=== PATIENT | female | born 1950 | race Caucasian/White ===

== ENCOUNTER 2019-06-11 09:45 | Outpatient (CLI) | payer SELFPAY ==
[2019-06-11 10:00] VITALS: BP 127/77; PULSE 68; RESP 16; TEMP 36.6; O2SAT 97
[2019-06-11 10:18] VITALS: BP 136/72; PULSE 72; RESP 16; TEMP 36.6; O2SAT 97
--- NOTE | 2019-06-11 11:34 | PC.NURSE ---
Prolia supplied from [facility]. 1015 Prolia administered SQ to RUQ of abdomen. Tolerated well. No charge for Prolia
== END 2019-06-11 09:46 | disposition home or self-care (01) ==
LOC: RHEOACUTE 09:50
PROVIDERS: Family Provider Physician Assistant; PCP Physician Assistant; Visit Provider Internal Medicine Rheumatology
DX: Z76.89 Persons encountering health services in other specified circumstances (principal)
CPT/HCPCS: 96372; J0897

== ENCOUNTER 2019-11-20 14:20 | Outpatient (CLI) | payer MEDICARE, OTHER, SELFPAY ==
--- NOTE | 2019-11-20 14:15 | USCV_ITS ---
Juliana Victoria Age: 69 Gender: F : 1950 Exam Date: 11/20/2019 14:36 Ordering Phys: Shantell Stevenson MD ([email or web address]) Technologist: Solomon Paredes Exam Location: [facility] [place] Indication: AORTIC VALVE STENOSIS BP: 125 / 70 HR: 51 Rhythm: Sinus Technical Quality: Adequate MEASUREMENTS (Male / Female) Normal Values 2D ECHO LV Diastolic Diameter PLAX 5.0 cm 4.2 - 5.9 / 3.9 - 5.3 cm LV Systolic Diameter PLAX 3.5 cm IVS Diastolic Thickness 0.9 cm 0.6 - 1.0 / 0.6 - 0.9 cm IVS Systolic Thickness 1.3 cm LVPW Diastolic Thickness 1.0 cm 0.6 - 1.0 / 0.6 - 0.9 cm LVPW Systolic Thickness 1.3 cm LVOT Diameter 2.0 cm LV Ejection Fraction 2C AL 60.2 % LA Diameter 4.7 cm LA Width 5.1 cm LA Height 6.4 cm RA Width 2.9 cm RA Height 4.9 cm Aorta at Sinotubular Diameter 1.3 cm M-MODE LV Diastolic Diameter MM 5.2 cm 4.2 - 5.9 / 3.9 - 5.3 cm LV Systolic Diameter MM 3.5 cm LV Ejection Fraction MM Teich 62.3 % IVS Diastolic Thickness MM 0.8 cm 0.6 - 1.0 / 0.6 - 0.9 cm IVS Systolic Thickness MM 1.2 cm LVPW Diastolic Thickness MM 1.2 cm 0.6 - 1.0 / 0.6 - 0.9 cm LVPW Systolic Thickness MM 1.6 cm RV Diastolic Diameter MM 1.3 cm Aortic Annulus Diameter 3.1 cm LA Ao Ratio MM 1.5 MV E Point Septal Separation 1.4 cm DOPPLER AV Peak Velocity 249.0 cm/s LVOT Peak Velocity 95.0 cm/s AV Area Cont Eq vti 1.4 cm squared AV Area Cont Eq pk 1.2 cm squared MV Area PHT 5.1 cm squared Mitral E to A Ratio 0.9 MV E' Velocity 10.0 cm/s Mitral E to MV E' Ratio 10.2 Mitral E to LV E' Lateral Ratio 11.2 Mitral E to LV E' Septal Ratio 9.6 TR Peak Velocity 420.0 cm/s TR Peak Gradient 70.4 mmHg TV Peak E Velocity 109.0 cm/s Right Atrial Pressure 3.0 mmHg Pulmonary Artery Systolic Pressu 73.6 mmHg PV Peak Velocity 94.0 cm/s FINDINGS Left Ventricle Moderately increased left ventricular cavity size. Moderatly decreased left ventricular systolic function. Global left ventricular hypokinesis. Left ventricular ejection fraction is estimated at 40 %. Global left ventricular hypokinesis. Grade I/IV diastolic dysfunction (abnormal relaxation filling pattern), normal to mildly elevated filling pressures. Right Ventricle Normal right ventricular size. Moderate pulmonary hypertension, RVSP 73.6 mmHg. Right Atrium The right atrium is normal in size. Left Atrium Severely increased left atrial size. Mitral Valve Moderately thickened mitral valve. No mitral valve stenosis. Moderate` mitral valve regurgitation. Aortic Valve Severe aortic valve calcification. Moderate aortic valve stenosis, mean gradient 10.3 mmHg, RACHELE 1.4 cm squared. [id number] aortic valve regurgitation. Tricuspid Valve Moderate tricuspid valve regurgitation. Pulmonic Valve Structurally normal pulmonic valve without significant stenosis. There is no pulmonic regurgitation. Pericardium Normal pericardium without effusion. Aorta Normal ascending aorta dimension. CONCLUSIONS 1-Moderately increased left ventricular cavity size. Moderatly decreased left ventricular systolic function. Global left ventricular hypokinesis. Left ventricular ejection fraction is estimated at 40 %. Global left ventricular hypokinesis. Grade I/IV diastolic dysfunction (abnormal relaxation filling pattern), normal to mildly elevated filling pressures. 2-Normal right ventricular size. Moderate pulmonary hypertension, RVSP 73.6 mmHg. 3-Severe aortic valve calcification. Moderate aortic valve stenosis, mean gradient 10.3 mmHg, RACHELE 1.4 cm squared. [id number]-thvcqizx aortic valve regurgitation. 4-Moderate tricuspid valve regurgitation. 5-There is no pericardial effusion. 6-When compared to prior echocardiogram dated 10/15/2018 there appeared to be reduction in left ventricle function from 50% to 40% which is moderately reduced now Shantell Stevenson MD (Electronically Signed) Final Date: 22 November 2019 17:05 S
== END 2019-11-20 14:21 | disposition home or self-care (01) ==
LOC: US 14:20
PROVIDERS: PCP Physician Assistant; Visit Provider Internal Medicine Cardiovascular Disease
DX: I27.20 Pulmonary hypertension, unspecified (principal); I08.2 Rheumatic disorders of both aortic and tricuspid valves
CPT/HCPCS: 93306

== ENCOUNTER 2020-09-30 08:41 | Outpatient (CLI) | payer MEDICARE, OTHER, SELFPAY ==
--- NOTE | 2020-09-30 08:46 | MM_ITS ---
WS: [id number] BILATERAL SCREENING DIGITAL MAMMOGRAM WITH CAD HISTORY: SCREENING COMPARISON: 10/19/2018 at 03/16/2015 Bilateral CC and MLO views submitted. Computer aided detection analyzed. Breast composition: There are scattered areas of fibroglandular density. No suspicious masses, microc alcifications or architectural distortion. Breast arterial calcifications in the RIGHT breast. MM/[place] [id number] IMPRESSION: BI-RADS: 2-Benign FOLLOW UP: 1 Year Follow-up
== END 2020-09-30 08:42 | disposition home or self-care (01) ==
LOC: RADSHAW 08:44
PROVIDERS: PCP Physician Assistant; Visit Provider Physician Assistant
DX: Z12.31 Encounter for screening mammogram for malignant neoplasm of breast (principal)
CPT/HCPCS: 77067

== ENCOUNTER → 2021-03-26 09:03 | Outpatient (BNVA) | payer MEDICARE, OTHER, SELFPAY | PROVIDERS: PCP Physician Assistant; Visit Provider Internal Medicine | DX: E55.9 Vitamin D deficiency, unspecified (principal); M81.0 Age-related osteoporosis without current pathological fracture; Z87.891 Personal history of nicotine dependence | CPT/HCPCS: 36415; 82542; 82652; 99214 ==

== ENCOUNTER 2021-03-26 09:54 | Outpatient (CLI) | payer MEDICARE, OTHER, SELFPAY ==
[2021-03-29 11:17] LABS: Vit D 1,25 (Oh)2, Total 40 pg/mL (18-72); Vit D2 1,25 (Oh)2 <8 pg/mL; Vit D3 1,25 (Oh)2 40 pg/mL
== END 2021-03-26 09:55 | disposition home or self-care (01) ==
LOC: LAB 09:57
PROVIDERS: PCP Physician Assistant; Visit Provider Internal Medicine
DX: E83.52 Hypercalcemia (principal)
CPT/HCPCS: 36415; 82542; 82652

== ENCOUNTER 2021-05-25 10:13 | Outpatient (CLI) | payer MEDICARE, OTHER, SELFPAY ==
[2021-05-25 11:30] LABS: Calcium 10.7 mg/dL (8.5-10.5); Phosphorus 3.4 mg/dL (2.5-4.5)
[2021-05-25 11:43] LABS: 25 Hydroxy Vitamin D 60 ng/mL (30-100)
== END 2021-05-25 10:14 | disposition home or self-care (01) ==
LOC: LAB 10:22
PROVIDERS: PCP Physician Assistant; Visit Provider Internal Medicine
DX: E83.52 Hypercalcemia (principal); M81.0 Age-related osteoporosis without current pathological fracture
CPT/HCPCS: 36415; 82306; 82310; 83970; 84100

== ENCOUNTER → 2021-05-28 09:11 | Outpatient (BNVA) | payer MEDICARE, OTHER, SELFPAY | PROVIDERS: PCP Physician Assistant; Visit Provider Internal Medicine | DX: E21.0 Primary hyperparathyroidism (principal); M81.0 Age-related osteoporosis without current pathological fracture; Z87.891 Personal history of nicotine dependence | CPT/HCPCS: 99214 ==

== ENCOUNTER 2021-08-09 08:09 | Outpatient (CLI) | payer MEDICARE, OTHER, SELFPAY ==
--- NOTE | 2021-08-09 08:14 | NM_ITS ---
WS: [id number] NUCLEAR MEDICINE PARATHYROID SCINTIGRAPHY INDICATION: Hypercalcemia TECHNIQUE: Parathyroid scintigraphy with 19.6 mCi technetium 99m sestamibi. Early and late imaging wa s obtained with suprasternal and chin markers. Initial imaging with delayed imaging at 2 hours. FINDINGS: Normal salivary uptake on the initial imaging. Normal homogeneous thyroid gland uptake. On the delayed imaging, normal thyroid gland washout. No residual thyroid gland activity. No residual ac tivity on the delayed imaging to indicate parathyroid adenoma. NM/NM parathyroid [id number] IMPRESSION: No evidence of parathyroid adenoma
== END 2021-08-09 08:10 | disposition home or self-care (01) ==
LOC: RAD 08:09
PROVIDERS: PCP Physician Assistant; Visit Provider Internal Medicine
DX: E21.0 Primary hyperparathyroidism (principal)
CPT/HCPCS: 78070; A9500

== ENCOUNTER → 2021-08-17 10:43 | Outpatient (BNVA) | payer MEDICARE, OTHER, SELFPAY | PROVIDERS: PCP Physician Assistant; Visit Provider Internal Medicine Cardiovascular Disease | DX: I35.0 Nonrheumatic aortic (valve) stenosis (principal); E83.52 Hypercalcemia; I25.5 Ischemic cardiomyopathy; I25.10 Atherosclerotic heart disease of native coronary artery without angina pectoris; I49.9 Cardiac arrhythmia, unspecified; I11.0 Hypertensive heart disease with heart failure; I50.33 Acute on chronic diastolic (congestive) heart failure; I44.0 Atrioventricular block, first degree; Z87.891 Personal history of nicotine dependence | CPT/HCPCS: 80048; 83880; 93005; 99214; 99215 ==

== ENCOUNTER → 2021-08-18 08:33 | Outpatient (BNVA) | payer MEDICARE, OTHER, SELFPAY | PROVIDERS: PCP Physician Assistant; Visit Provider Internal Medicine | DX: E21.0 Primary hyperparathyroidism (principal); M81.0 Age-related osteoporosis without current pathological fracture; Z87.891 Personal history of nicotine dependence | CPT/HCPCS: 99214 ==

== ENCOUNTER 2021-08-30 12:06 | Observation (INO) | payer MEDICARE, OTHER, SELFPAY ==
[2021-08-30 12:29] VITALS: BP 122/90; PULSE 74; RESP 18; TEMP 36.6; O2SAT 99; BMI 26.4
[2021-08-30 14:20] LABS: Add Urine Microscopic? NO; Charge for UA Resulting for Rev
[2021-08-30 14:24] LABS: Urine Appearance Clear (CLEAR); Urine Color Straw (Yellow); pH Urine 7 (5-7)
[2021-08-30 14:25] LABS: Bilirubin Urine Neg (Negative); Blood Urine Neg (Negative); Glucose Urine UA Norm (Normal); Ketones Urine Negative (Negative); Leukocyte Esterase Urine Negative (Negative); Nitrate Urine Negative (Negative); Protein Urine Neg (Negative); Urobilinogen Urine Norm (Negative)
[2021-08-30 16:02] VITALS: BP 130/53; PULSE 70; RESP 18; TEMP 36.6; O2SAT 99
--- NOTE | 2021-08-30 16:07 | ECG_ITS ---
[facility] Test Date: 2021-08-30 Pat Name: Juliana Victoria Department: Room: Gender: Female Cultural Historian: : 1950 Requested By: Jen Alford Order Number: [id number] Carlos MD: Jaclyn Santiago M.D. Measurements Intervals [place] Rate: 78 P: 77 MS: 214 QRS: -15 QRSD: 153 T: 84 QT: 385 QTc: 440 Interpretive Statements SINUS RHYTHM WITH FIRST DEGREE AV BLOCK WITH FREQUENT VENTRICULAR PREMATURE COMPLEXES POSSIBLE LEFT ATRIAL ENLARGEMENT [-0.1mV P-WAVE IN V1/V2] LEFT BUNDLE BRANCH BLOCK Compared to ECG 08/13/2017 01:38:10 Ventricular premature complex(es) now present First degree AV block now present Electronically Signed On 08-30-2021 17:32:41 CDT by Jaclyn Santiago M.D. [id number]
--- NOTE | 2021-08-30 16:07 | XRR_ITS ---
PROCEDURE INFORMATION: Exam: XR Chest Exam date and time: 08/30/2021 4:30 PM Age: 71 years old Clinical indication: Other: Light-headedness TECHNIQUE: Imaging protocol: XR of the chest. Views: 1 view. COMPARISON: CR Chest 1 [place] [id number] 08/13/2017 1:47 AM FINDINGS: Lungs: Unremarkable. No consolidation. Pleural spaces: Unremarkable. No pleural effusion. No pneumothorax. Heart/Mediastinum: Cardiomegaly. Bones/joints: Unremarkable. XR/XR chest 1V portable [id number] IMPRESSION: Cardiomegaly, negative for infiltrate.
[2021-08-30 16:13] LABS: Basophils # 0.1 10^3/uL (0.0-0.1); Basophils % 0.7 %; Eosinophils # 0.1 10^3/uL (0.0-0.8); Eosinophils % 1.9 %; Hemoglobin 13.7 g/dL (11.5-15.3); Lymphocytes # 1.9 10^3/uL (0.8-4.8); Mean Corpuscular HGB Conc 33.4 g/dL (30.0-36.0); Mean Corpuscular Volume 95.8 fl (81-99); Mean Platelet Volume 10.5 fL (7.4-10.4); Monocytes # 0.7 10^3/uL (0.2-0.9); Monocytes % 9.6 %; Neutrophils # 4.13 10^3/uL (1.8-7.7); Neutrophils % 60.5 %; Nucleated Red Blood Cells % 0 %; Platelet Count 263 10^3/cmm (130-400); Red Blood Count 4.28 10^6/uL (4.1-5.3); Red Cell Distribution Width 13.2 % (12.1-15.1); White Blood Count 6.8 10^3/uL (4.0-10.0)
--- NOTE | 2021-08-30 16:20 | W.ED.GENADLT ---
HPI - General Adult General: Chief complaint: General Medical Stated complaint: Low bl pressure; Says they have fluid on their anni Time Seen by Provider: 08/30/21 15:58 History of Present Illness: Patient is 71-year-old female with history of aortic regurgitation with CAD, CHF w/ EF of 40%, hypertension who presents the emergency room with concerns of palpitation and lightheadedness. Patient tells me that earlier today, she felt very lightheaded almost passed out this morning at 9am. Around that time, the patient measured her blood pressure was noted to be 105/70. Patient denies any syncope chest pain shortness of breath nausea/vomiting, diaphoresis abdominal pain at that time. Patient denies any exertional dyspnea/chest pain pleuritic chest pain. Patient denies any lower extremity swelling. Patient is currently followed by Dr. Cohen he came to the emergency room for concerns of lightheadedness. He does not have a pacemaker or AICD device. Onset:earlier today Duration:once lasting for a few minutes Location:home Severity:moderate Associated symptoms: Deny chest pain, dyspnea, nausea, rash, palpitations or vomiting Review of Systems Const: Denies: fever(s) or chills Eyes: Denies: change in vision ENMT: Denies: mouth pain Card: Denies: chest pain or palpitations Resp: Denies: dyspnea or non-productive cough GI: Denies: abdominal pain, nausea, vomiting or diarrhea : Denies: dysuria Musc: Denies: extremity pain Skin/Breast: Denies: rash or new lesions Neuro: Reports: other (+light-headedness); Denies: weakness in extremities Psych: Reports: other (Normal mood) Nicholas/Lymph: Denies: easy bruising PFSH ED PFSH: Medical History Aortic regurgitation Aortic stenosis CAD (coronary artery disease) Heart murmur HTN (hypertension) Osteoporosis Surgical History H/O section S/P appendectomy S/P coronary angioplasty S/P hip replacement S/P knee replacement S/P rotator cuff repair Family History Mother Cancer Arthritis Family history of thyroid problem Osteoporosis Heart disease Hypertension CAD (coronary artery disease) Dementia Father Arthritis Heart disease Hypertension CAD (coronary artery disease) Denies family history of Diabetes Clotting disorder Chronic kidney disease (CKD) Suicide Anesthesia complication Bleeding disorder Lung disease Stroke Social History Smoking and tobacco status: former smoker History of recent travel: No Physical Exam Const: COMMON NORMALS: alert HENMT: COMMON NORMALS: atraumatic HEAD & SCALP: atraumatic MOUTH: moist mucous membranes not abnormal Eye: COMMON NORMALS: EOMs intact bilaterally and conjunctivae normal CONJUNCTIVA: Yes conjunctivae normal Neck/C-Spine: COMMON NORMALS: full ROM and supple Resp: COMMON NORMALS: normal respiratory effort and clear to auscultation bilaterally AUSCULTATION: clear to auscultation bilaterally Cardio: COMMON NORMALS: regular rate RATE: regular rate GI: COMMON NORMALS: Soft to palpation and non-tender PALPATION: Yes Soft to palpation Extremity: COMMON NORMALS: full ROM Neuro: SENSORIUM/ORIENTATION: Yes alert MOTOR EXAM: No Abnormal motor strength present and Other motor observations present (no focal motor deficits) Psych: COMMON NORMALS: speech normal SPEECH: Yes normal speech MOOD & AFFECT: Yes euthymic mood Course Vital Signs: Vital signs: Vital Signs Temperature 97.9 F 08/30/21 16:02 Pulse Rate 70 08/30/21 16:02 Respiratory Rate 18 08/30/21 16:02 Blood Pressure 130/53 08/30/21 16:02 Pulse Oximetry 99 08/30/21 16:02 [facility] - General Adult Medical Decision Making 71-year-old female with history of CHF, CAD presenting to the emergency room with complaints of lightheadedness. On physical exam, patient is hemodynamically stable with no focal findings. Patient is noted to have regular PVCs. Lab work-up showed focal findings. Given history of CHF with EF 40% and the comorbidities, patient will be admitted to hospital for telemetry and observation for high risk syncope. Disposition: admission Lab Data : 08/30/21 15:38 08/30/21 15:38 Laboratory Results WBC 6.8 10^3/uL (4.0-10.0) 08/30/21 15:38 RBC 4.28 10^6/uL (4.1-5.3) 08/30/21 15:38 Hgb 13.7 g/dL (11.5-15.3) 08/30/21 15:38 Hct 41.0 % (37.0-47.0) 08/30/21 15:38 MCV 95.8 fl (81-99) 08/30/21 15:38 MCH 32.0 pg (28.0-34.0) 08/30/21 15:38 MCHC 33.4 g/dL (30.0-36.0) 08/30/21 15:38 RDW 13.2 % (12.1-15.1) 08/30/21 15:38 Plt Count 263 10^3/cmm (130-400) 08/30/21 15:38 MPV 10.5 fL (7.4-10.4) H 08/30/21 15:38 Neut % (Auto) 60.5 % 08/30/21 15:38 Lymph % (Auto) 27.0 % 08/30/21 15:38 [place] % (Auto) 9.6 % 08/30/21 15:38 Eos % (Auto) 1.9 % 08/30/21 15:38 Baso % (Auto) 0.7 % 08/30/21 15:38 Neut # (Auto) 4.13 10^3/uL (1.8-7.7) 08/30/21 15:38 Lymph # (Auto) 1.9 10^3/uL (0.8-4.8) 08/30/21 15:38 [place] # (Auto) 0.7 10^3/uL (0.2-0.9) 08/30/21 15:38 Eos # (Auto) 0.1 10^3/uL (0.0-0.8) 08/30/21 15:38 Baso # (Auto) 0.1 10^3/uL (0.0-0.1) 08/30/21 15:38 Nucleated RBC % (auto) 0 % 08/30/21 15: Nucleated RBCs # 0.0 /100WBC 08/30/21 15:38 Sodium 134 mmol/L (136-145) L 08/30/21 15:38 Potassium 3.6 mmol/L (3.5-5.1) 08/30/21 15:38 Chloride 96 mmol/L (98-107) L 08/30/21 15:38 Carbon Dioxide 23 mmol/L (22-29) 08/30/21 15:38 Anion Gap 18.6 (5-19) 08/30/21 15:38 BUN 13 mg/dL (8-23) 08/30/21 15:38 Creatinine 0.4 mg/dL (0.5-0.9) L 08/30/21 15:38 GFR Calculation Not Reportable 08/30/21 15:38 Glucose 100 mg/dL (65-115) 08/30/21 15:38 Calculated Osmolality 278 mOsm/kg (285-295) L 08/30/21 15:38 Calcium 10.2 mg/dL (8.5-10.5) 08/30/21 15:38 Magnesium 2.2 mg/dL (1.7-2.3) 08/30/21 15:38 Magnesium Cancelled 08/30/21 15:38 Total Bilirubin 0.6 mg/dL (0.15-1.2) 08/30/21 15:38 AST 23 U/L (0-32) 08/30/21 15:38 ALT 18 U/L (0-33) 08/30/21 15:38 Alkaline Phosphatase 95 IU/L (35-105) 08/30/21 15:38 Troponin T Baseline 6 ng/L (0-10) 08/30/21 15:38 Total Protein 8.7 g/dL (6.6-8.7) 08/30/21 15:38 Albumin 5.3 g/dL (3.5-5.2) H 08/30/21 15:38 Globulin 3.4 g/dL (1.3-4.6) 08/30/21 15:38 Lipase 18 U/L (13-60) 08/30/21 15:38 Urine Color Straw (Yellow) 08/30/21 13:59 Urine Appearance Clear (CLEAR) 08/30/21 13:59 Urine pH 7 (5-7) 08/30/21 13:59 Ur Specific [place] 1.010 (1.005-1.030) 08/30/21 13:59 Urine Protein Neg (Negative) 08/30/21 13:59 Urine Glucose (UA) Norm (Normal) 08/30/21 13:59 Urine Ketones Negative (Negative) 08/30/21 13:59 Urine Blood Neg (Negative) 08/30/21 13:59 Urine Nitrate Negative (Negative) 08/30/21 13:59 Urine Bilirubin Neg (Negative) 08/30/21 13:59 Urine Urobilinogen Norm mg/dL (Negative) 08/30/21 13:59 Ur Leukocyte Esterase Negative (Negative) 08/30/21 13:59 Imaging Data Other Imaging: Radiologist's impression: [address] [address] XRay Report Signed Patient: Juliana Victoria Unit #: [id number] : 1950 Age/Sex: 71 / F ADM Date: 08/30/21 Loc: ER Room/Bed: Attending Dr: Ordering Provider/Ordering MD: Jen Alford MD Date of Service: 08/30/21 Procedure(s): XR chest 1V portable [id number] Accession Number(s): [id number] Report Number: [id number] PROCEDURE INFORMATION: Exam: XR Chest Exam date and time: 08/30/2021 4:30 PM Age: 71 years old Clinical indication: Other: Light-headedness TECHNIQUE: Imaging protocol: XR of the chest. Views: 1 view. COMPARISON: CR Chest 1 [place] [id number] 08/13/2017 1:47 AM FINDINGS: Lungs: Unremarkable. No consolidation. Pleural spaces: Unremarkable. No pleural effusion. No pneumothorax. Heart/Mediastinum: Cardiomegaly. Bones/joints: Unremarkable. XR/XR chest 1V portable [id number] IMPRESSION: Cardiomegaly, negative for infiltrate. ? Dictated By: Owen Pickard MD Signed By: Owen Pickard MD Signed Date/Time: 08/30/21 1655 DD/ 1630 Discharge Plan Discharge Patient Disposition: Admitted As Inpatient Clinical Impression: Light headedness Condition: Stable Coding Level of Care Code ED Callisthenics Instructor for Chg Fwd Exam Comprehensive
[2021-08-30 16:36] LABS: Alanine Aminotransferase 18 U/L (0-33); Albumin Level 5.3 g/dL (3.5-5.2); Alkaline Phosphatase 95 IU/L (35-105); Anion Gap 18.6 (5-19); Aspartate Amino Transferase 23 U/L (0-32); Blood Urea Nitrogen 13 mg/dL (8-23); Calcium 10.2 mg/dL (8.5-10.5); Carbon Dioxide 23 mmol/L (22-29); Chloride 96 mmol/L (98-107); Globulin 3.4 g/dL (1.3-4.6); Glucose 100 mg/dL (65-115); Lipase 18 U/L (13-60); Magnesium 2.2 mg/dL (1.7-2.3); Osmolality Calculated 278 mOsm/kg (285-295); Potassium 3.6 mmol/L (3.5-5.1); Sodium 134 mmol/L (136-145); Total Bilirubin 0.6 mg/dL (0.15-1.2); Total Protein 8.7 g/dL (6.6-8.7)
[2021-08-30 16:38] LABS: Troponin(5th) Baseline 6 ng/L (0-10)
[2021-08-30] MEDS: sodium chloride 0.9% 1,000 ML 999 ML IV ×2 (16:44→17:45)
--- NOTE | 2021-08-30 17:29 | P.HP_ITS ---
Providers/Chief Complaint Primary Care Provider: Daniela Price Chief Complaint: Low blood sugar, Says they have fluid on their anni History of Present Illness Juliana Victoria is a 71 year old female with a past medical history of CAD s tatus post PCI to mid LAD, has mild disease of left circumflex and right coronary artery, ischemic cardiomyopathy EF 40%, history of aortic valve stenosis, history of pulmonary hypertension, osteoporosis, hyperlipidemia, hypertension who presents [facility] due to presyncopal symptoms. Cosmo acosta tells me that she just saw Dr. Noel Torres she was doing well. However since then she has been feeling a bit lightheaded and more short of breath than normal. She denies ever passing out. But feels that she is almost going to pass out. Does not particularly associate with any position. But whenever she exerts herself at times, she feels like she is going to pass out feels lightheaded. Denies any chest pain. No dysuria. No hematuria. No cough. No fevers. No focal neurologic deficits, no paresthesias, no focal weakness. No history of strokes. No history of seizures. No recent history of infections. Denies bloody or black stools. Denies hematuria Review of Systems Const: Denies: fever(s) or chills Eyes: Denies: change in vision or blurry vision Resp: Denies: productive cough, non-productive cough or wheezing GI: Denies: abdominal pain, nausea, vomiting, hematemesis, diarrhea, hematochezia or melena : Denies: flank pain, dysuria or urinary frequency Musc: Denies: neck pain or back pain Skin/Breast: Denies: rash Neuro: Denies: headache(s) or vertigo Endo: Denies: polyuria or polydipsia Medications/Allergies Home Medications Medication Instructions Recorded Confirmed Last Taken Type amlodipine 10 mg tablet 10 mg PO DAILY 06/20/19 08/30/21 08/30/21 History aspirin 81 mg tablet,delayed 81 mg PO DAILY 06/20/19 08/30/21 08/30/21 History release (Adult Low Dose Aspirin) cholecalciferol (vitamin D3) 25 1,000 unit PO DAILY 06/20/19 08/30/21 08/30/21 History mcg (1,000 unit) capsule nebivolol 5 mg tablet (Bystolic) 5 mg PO DAILY 06/20/19 08/30/21 08/30/21 History simvastatin 20 mg tablet 20 mg PO DAILY 06/20/19 08/30/21 08/30/21 History furosemide 20 mg tablet 20 mg PO DAILY 12/25/20 08/30/21 08/30/21 History denosumab 60 mg/mL subcutaneous 60 mg SUBCUT .EVERY 6 MONTHS ml 01/08/21 08/30/21 2 Months Ago History syringe (Prolia) ~06/30/21 multivitamin 1 tab PO DAILY 01/08/21 08/30/21 08/30/21 History potassium chloride 10 mEq 10 meq PO DAILY 01/08/21 08/30/21 08/30/21 History tablet,extended release vit B complex with C 300 1 tab PO DAILY 01/08/21 08/30/21 08/30/21 History mg-calcium carbonate 150 mg calcium tablet (B-Complex Plus Vitamin C (and calcium)) zinc acetate 50 mg (zinc) capsule 50 mg PO DAILY 03/26/21 08/30/21 08/30/21 History (Galzin) sacubitril 24 mg-valsartan 26 mg 1 tab PO BID #60 tab 08/17/21 08/30/21 08/30/21 Rx tablet (Entresto) celecoxib 200 mg capsule 200 mg PO BID PRN 08/30/21 08/30/21 Unknown History Allergies Allergy/AdvReac Type Severity Reaction Status Date / Time diphenhydramine AdvReac Intermediate Hypertensio Verified 08/30/21 16:47 [From Benadryl] n azithromycin [From Zithromax] AdvReac Mild Weird Verified 08/30/21 16:47 feeling PFSH Acute PFSH: Medical History Aortic regurgitation Aortic stenosis CAD (coronary artery disease) Heart murmur HTN (hypertension) Osteoporosis Surgical History H/O section S/P appendectomy S/P coronary angioplasty S/P hip replacement S/P knee replacement S/P rotator cuff repair Family History Mother Cancer Arthritis Family history of thyroid problem Osteoporosis Heart disease Hypertension CAD (coronary artery disease) Dementia Father Arthritis Heart disease Hypertension CAD (coronary artery disease) Denies family history of Diabetes Clotting disorder Chronic kidney disease (CKD) Suicide Anesthesia complication Bleeding disorder Lung disease Stroke Social History Smoking and tobacco status: former smoker History of recent travel: No Vitals/I&O/Wt Last Vital Signs Temp 97.9 F 08/30/21 16:02 Pulse 70 08/30/21 16:02 Resp 18 08/30/21 16:02 BP 130/53 08/30/21 16:02 Pulse Ox 99 08/30/21 16:02 Weight last 48 hrs Weight 53.524 kg Physical Exam Const: COMMON NORMALS: no acute distress and patient oriented x3 HENMT: COMMON NORMALS: normocephalic HEAD & SCALP: normocephalic Eye: COMMON NORMALS: Equal, round and reactive pupils present and EOMs intact bilaterally Neck/C-Spine: COMMON NORMALS: no JVD Resp: COMMON NORMALS: normal respiratory effort, No retractions, No use of accessory muscles and clear to auscultation bilaterally AUSCULTATION: clear to auscultation bilaterally Cardio: COMMON NORMALS: no JVD, regular rate, regular rhythm, S1 normal heart sound present and S2 normal heart sound present RATE: regular rate RHYTHM: regular rhythm HEART SOUNDS: S1 normal heart sound present, S2 normal heart sound present and Murmur heart sound present GI: COMMON NORMALS: Normal to inspection, nondistended, normoactive bowel sounds present, Soft to palpation, non-tender, No hepatosplenomegaly present, no masses and no bruits PALPATION: Yes Soft to palpation and Yes No hepatosplenomegaly present Extremity: COMMON NORMALS: capillary refill normal, no clubbing, cyanosis or edema, no calf tenderness and no pedal edema Neuro: COMMON NORMALS: patient oriented x3 Psych: COMMON NORMALS: mental status grossly normal Data : 08/30/21 15:38 08/30/21 15:38 A&P Assessment and plan (1) Pre-syncope: Status: Acute (2) CAD (coronary artery disease): Status: Acute Qualifiers: Coronary Disease-Associated Artery/Lesion type: [place] artery [place] vs. transplanted heart: [place] heart Associated angina: without angina Qualified Code(s): I25.10 - Atherosclerotic heart disease of [place] coronary artery without angina pectoris (3) Aortic stenosis: Status: Acute Qualifiers: Cardiac valve disease etiology: nonrheumatic Qualified Code(s): I35.0 - Nonrheumatic aortic (valve) stenosis (4) HTN (hypertension): Status: Acute Qualifiers: Hypertension type: essential hypertension Qualified Code(s): I10 - Essential (primary) hypertension (5) Osteoporosis: Status: Acute (6) Atherosclerosis of coronary artery of [place] heart without angina pectoris: Status: Acute Plan Presyncope -Serial EKGs, serial troponins, telemetry monitoring -Patient recently started Entresto, may be on , possibly this could be leading to patient's symptomatology, continue for now, will reach out to cardiology with work-up -Cardiac echo -Carotid artery ultrasound -CT of the head -Orthostatic vitals, TSH, mag -PT OT -Full code -Lovenox for DVT prophylaxis Aortic valve stenosis ischemic cardiomyopathy - Attestations Medical Necessity Statement*: Patient requires hospitalization, outpatient observation for presyncope Coding Level of Care Code Acute Crane Service Technician for Chg Fwd Diagnoses Pre-syncope R55 CAD (coronary artery disease) I25.10 Coronary Disease-Associated Artery/Lesion type: [place] artery [place] vs. transplanted heart: [place] heart Associated angina: without angina Aortic stenosis I35.0 Cardiac valve disease etiology: nonrheumatic HTN (hypertension) I10 Hypertension type: essential hypertension Osteoporosis M81.0 Atherosclerosis of coronary artery of [place] heart without angina pectoris I25.10
--- NOTE | 2021-08-30 18:07 | ECG_ITS ---
[facility] Test Date: 2021-08-30 Pat Name: Juliana Victoria Department: Room: 259 Gender: Female Manager Shell: : 1950 Requested By: Jen Alford Order Number: [id number] Carlos MD: Jaclyn Santiago M.D. Measurements Intervals [place] Rate: 70 P: 74 MD: 220 QRS: -42 QRSD: 144 T: 82 QT: 384 QTc: 417 Interpretive Statements SINUS RHYTHM WITH FIRST DEGREE AV BLOCK WITH FREQUENT VENTRICULAR PREMATURE COMPLEXES POSSIBLE LEFT ATRIAL ENLARGEMENT [-0.1mV P-WAVE IN V1/V2] LEFT AXIS DEVIATION [QRS AXIS < -30] LEFT BUNDLE BRANCH BLOCK Compared to ECG 08/30/2021 16:12:50 Ventricular premature complex(es) now present Left-axis deviation now present Electronically Signed On 08-30-2021 21:07:10 CDT by Jaclyn Santiago M.D. [id number]
[2021-08-30 18:09] VITALS: BP 139/61; PULSE 68; RESP 18; O2SAT 90
[2021-08-30 18:19] VITALS: BP 128/77; PULSE 70
--- NOTE | 2021-08-30 18:19 | CTR_ITS ---
PROCEDURE INFORMATION: Exam: CT Head Without Contrast Exam date and time: 08/30/2021 9:23 PM Age: 71 years old Clinical indication: Dizziness; Additional info: Presyncope TECHNIQUE: Imaging protocol: Computed tomography of the head without contrast. Radiation optimization: All CT scans at this facility use at least one of these dose optimization techniques: automated exposure control; mA and/or kV adjustment per patient size (includes targeted exams where dose is matched to clinical indication); or iterative reconstruction. COMPARISON: US CV carotid duplex BI* [id number] 08/30/2021 6:55 PM RADIATION DOSE METRICS: Total DLP (mGy-cm): 695.85 FINDINGS: Brain: Mild atrophy and mild white matter chronic microvascular changes are noted. No hemorrhage or evidence of acute infarction. Cerebral ventricles: No ventriculomegaly. Paranasal sinuses: Visualized sinuses are unremarkable. No fluid levels. Mastoid air cells: Visualized mastoid air cells are well aerated. Bones/joints: Unremarkable. No acute fracture. Soft tissues: Unremarkable. CT/CT head wo con* [id number] IMPRESSION: No acute intracranial abnormality.
--- NOTE | 2021-08-30 18:19 | USCV_ITS ---
Juliana Victoria Age: 71 Gender: F : 1950 Exam Date: 08/30/2021 22:41 Ordering Phys: Theodore Cottrell MD Technologist: CKMariah Exam Location: [facility] – [place] Indication: Aortic Stenosis BP: 104 / 60 HR: 66 Rhythm: Sinus Technical Quality: Adequate MEASUREMENTS (Male / Female) Normal Values 2D ECHO LV Diastolic Diameter PLAX 5.7 cm 4.2 - 5.9 / 3.9 - 5.3 cm LV Systolic Diameter PLAX 4.1 cm IVS Diastolic Thickness 1.3 cm 0.6 - 1.0 / 0.6 - 0.9 cm IVS Systolic Thickness 0.8 cm LVPW Diastolic Thickness 1.3 cm 0.6 - 1.0 / 0.6 - 0.9 cm LVPW Systolic Thickness 2.0 cm LVOT Diameter 1.9 cm LV Ejection Fraction 2D Teich 53.7 % LV Ejection Fraction MOD 2C 52.6 % LV Ejection Fraction 2C AL 49.7 % LA Diameter 3.8 cm LA Width 4.5 cm LA Height 6.3 cm RA Width 3.4 cm RA Height 5.2 cm Aorta at Sinotubular Diameter 2.3 cm IVC Diameter 1.2 cm M-MODE Aortic Annulus Diameter 2.7 cm LA Ao Ratio MM 1.5 MV E Point Septal Separation 1.6 cm DOPPLER AV Peak Velocity 271.4 cm/s LVOT Peak Velocity 113.0 cm/s AV Area Cont Eq vti 1.3 cm squared AV Area Cont Eq pk 1.1 cm squared MV Peak Velocity 105.0 cm/s MV Area PHT 3.3 cm squared Mitral E to A Ratio 0.9 MV E' Velocity 90.0 cm/s TR Peak Velocity 179.4 cm/s TR Peak Gradient 12.9 mmHg TR Mean Velocity 141.4 cm/s TR Mean Gradient 10.7 mmHg TR Velocity Time Integral 51.6 cm Right Atrial Pressure 10.0 mmHg Pulmonary Artery Systolic Pressu 22.9 mmHg PV Peak Velocity 188.0 cm/s RV Acceleration Time 0.1 s RV Ejection Time 0.3 s RV AcT/ET 0.2 FINDINGS Left Ventricle Left ventricle is dilated. LV systolic function is mildly reduced with EF of 40-45%. No regional wall motion abnormalities. Right Ventricle The right ventricle is normal in size and function. Right Atrium The right atrium is normal in size. Left Atrium The left atrium is dilated Mitral Valve Mitral valve is thickened without significant stenosis or prolapse. There is trace mitral regurgitation. Aortic Valve Aortic valve is thickened. Mild aortic stenosis with aortic valve area of 1.2cm2 and mean gradient across the valve of 13.6mmHg. There is mild to moderate aortic regurgitation. Tricuspid Valve Structurally normal tricuspid valve without significant stenosis. Trace tricuspid regurgitation. Insufficient TR jet to calculate RVSP Pulmonic Valve Not well visualized Pericardium Normal pericardium without effusion. Aorta Normal ascending aorta dimension. IVC CONCLUSIONS LV is mildly dilated LV systolic function is mildly reduced with EF of 40-45% Left atrium is dilated Aortic valve is thickened. Mild aortic stenosis with aortic valve area of 1.2cm2 and mean gradient across the valve of 13.6mmHg. There is mild to moderate aortic regurgitation. Trace tricuspid regurgitation. Compared to prior echocardiogram from 11/20/2019, no significant changes are seen Hitesh Mckenna MD (Electronically Signed) Final Date: 31 Aug 2021 11:54 S
--- NOTE | 2021-08-30 18:19 | USR_ITS ---
PROCEDURE INFORMATION: Exam: US Duplex Bilateral Extracranial Arteries, Carotid Arteries Exam date and time: 08/30/2021 6:55 PM Age: 71 years old Clinical indication: Dizziness; Additional info: Presyncope TECHNIQUE: Imaging protocol: Real-time Duplex ultrasound scan of the bilateral carotid and vertebral arteries combining villafana scale, color Doppler and spectral waveform analysis. Bilateral exam. Exam focused on the carotid arteries. COMPARISON: US ROR carotid duplex BI 02/10/2015 10:05 AM FINDINGS: Right common carotid artery: Unremarkable. No occlusion or stenosis. Waveforms are normal. Right internal carotid artery: Unremarkable. No occlusion or stenosis. Waveforms are normal. Right ICA/CCA ratio: Within normal limits. Right external carotid artery: No stenosis in the origin. Right vertebral artery: Unremarkable. Antegrade flow. Left common carotid artery: Unremarkable. No occlusion or stenosis. Waveforms are normal. Left internal carotid artery: Unremarkable. No occlusion or stenosis. Waveforms are normal. Left ICA/CCA ratio: Within normal limits. Left external carotid artery: No stenosis in the origin. Left vertebral artery: Unremarkable. Antegrade flow. Other findings: Minimal scattered atherosclerotic plaque carotid arteries. US/CV carotid duplex BI* [id number] IMPRESSION: 1. Less than 50% stenosis of the bilateral internal carotid arteries by peak systolic velocity criteria 2. Minimal scattered atherosclerotic plaque carotid arteries. REFERENCES: SRU CRITERIA. The degree of internal carotid artery stenosis is based on criteria defined by the Society of Radiologists in Ultrasound (SRU). Normal is no stenosis. Mild is less than 50% stenosis. Moderate is 50-69% stenosis. Severe is greater than 69% stenosis to near occlusion. Near occlusion is a markedly narrowed lumen. Total occlusion is no detectable patent lumen.
[2021-08-30 18:21] VITALS: BMI 26.4
[2021-08-30] MEDS: sacubitril/valsartan 24-26 mg Tablet 1 EACH PO (19:41)
[2021-08-30] MEDS: enoxaparin 40 mg/0.4 mL Syringe SUBCUT (19:42)
[2021-08-30 20:10] LABS: Troponin 5 2HR Delta 0 ABS# (0-10)
[2021-08-30 20:15] VITALS: BP 115/71; BP 119/72; BP 128/77; PULSE 65; PULSE 79; PULSE 83
[2021-08-30 21:46] LABS: Troponin 5 6HR 6.13 ng/L (0-10)
[2021-08-30 21:57] LABS: Troponin 5 6HR Delta 0.13 ng/L (0-12)
[2021-08-30 22:00] VITALS: PULSE 69
--- NOTE | 2021-08-30 22:07 | ECG_ITS ---
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 Measurements Intervals [place] Rate: 68 P: 76 MA: 210 QRS: -66 QRSD: 157 T: 85 QT: 481 QTc: 512 Interpretive Statements SINUS RHYTHM WITH FIRST DEGREE AV BLOCK WITH FREQUENT VENTRICULAR PREMATURE COMPLEXES LEFT AXIS DEVIATION [QRS AXIS < -30] LEFT BUNDLE BRANCH BLOCK [120+ ms QRS DURATION, 80+ ms Q/S IN V1/V2, 85+ ms R IN I/aVL/V5/V6] Compared to ECG 08/30/2021 20:55:18 No significant changes Electronically Signed On 08-31-2021 17:17:12 CDT by Hitesh Mckenna M.D. [id number]
[2021-08-31] VITALS: BP 115/54; PULSE 69; RESP 16; TEMP 36.8; O2SAT 95
[2021-08-31 04:00] VITALS: BP 134/77; PULSE 74; RESP 18; TEMP 36.6; O2SAT 96
[2021-08-31 05:18] LABS: Basophils # 0.1 10^3/uL (0.0-0.1); Eosinophils # 0.2 10^3/uL (0.0-0.8); Eosinophils % 2.6 %; Hematocrit 39.7 % (37.0-47.0); Hemoglobin 12.8 g/dL (11.5-15.3); Lymphocytes # 2.1 10^3/uL (0.8-4.8); Mean Corpuscular HGB Conc 32.2 g/dL (30.0-36.0); Mean Corpuscular Hemoglobin 31.8 pg (28.0-34.0); Mean Corpuscular Volume 98.5 fl (81-99); Monocytes # 0.7 10^3/uL (0.2-0.9); Monocytes % 10.7 %; Neutrophils # 3.12 10^3/uL (1.8-7.7); Neutrophils % 51.4 %; Nucleated Red Blood Cells % 0 %; Platelet Count 208 10^3/cmm (130-400); Red Blood Count 4.03 10^6/uL (4.1-5.3); Red Cell Distribution Width 13.2 % (12.1-15.1); White Blood Count 6.1 10^3/uL (4.0-10.0)
[2021-08-31 05:51] LABS: Alanine Aminotransferase 15 U/L (0-33); Albumin Level 4.2 g/dL (3.5-5.2); Alkaline Phosphatase 75 IU/L (35-105); Anion Gap 15.5 (5-19); Aspartate Amino Transferase 20 U/L (0-32); Blood Urea Nitrogen 11 mg/dL (8-23); Calcium 9.2 mg/dL (8.5-10.5); Carbon Dioxide 21 mmol/L (22-29); Chloride 98 mmol/L (98-107); Globulin 2.8 g/dL (1.3-4.6); Glucose 97 mg/dL (65-115); Magnesium 2.1 mg/dL (1.7-2.3); Osmolality Calculated 271 mOsm/kg (285-295); Phosphorus 2.6 mg/dL (2.5-4.5); Potassium 3.5 mmol/L (3.5-5.1); Sodium 131 mmol/L (136-145); Thyroid Stimulating Hormone 3.65 uIU/mL (0.27-4.20); Total Bilirubin 0.6 mg/dL (0.15-1.2)
[2021-08-31 06:00] VITALS: PULSE 63
[2021-08-31 06:59] LABS: Chol HDL Ratio 1.56 mg/dL (0.0-4.40); Cholesterol 162 mg/dL (0-200); HDL Cholesterol 104 mg/dL (60-100); LDL Cholesterol Calculated 44 mg/dL (50-129); LDL HDL Ratio 0.42 RATIO (0.00-3.22); NT Pro B Type Natriuretic Pept 1786 pg/mL (0-125); Triglycerides 72 mg/dL (0-150)
[2021-08-31 07:53] VITALS: BP 130/69; PULSE 71; RESP 16; TEMP 36.6; O2SAT 99
[2021-08-31] MEDS: aspirin 81 mg EC Tablet PO (08:19)
[2021-08-31] MEDS: multivitamin therapeutic Tablet 1 TAB PO (08:19)
[2021-08-31] MEDS: potassium chloride ER 10 mEq Tablet PO (08:19)
[2021-08-31] MEDS: atorvastatin 40 mg Tablet 20 MG PO (08:20)
[2021-08-31] MEDS: zinc gluconate 50 mg Tablet PO (08:20)
[2021-08-31] MEDS: sacubitril/valsartan 24-26 mg Tablet 1 EACH PO (08:20)
[2021-08-31] MEDS: cholecalciferol (vitamin D3) 1,000 unit Tablet 1000 UNIT PO (08:20)
[2021-08-31] MEDS: FUROsemide 20 mg Tablet PO (08:20)
--- NOTE | 2021-08-31 10:17 | ECG_ITS ---
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 Measurements Intervals [place] Rate: 67 P: 40 FL: 210 QRS: -16 QRSD: 148 T: 55 QT: 435 QTc: 461 Interpretive Statements SINUS RHYTHM WITH FIRST DEGREE AV BLOCK POSSIBLE LEFT ATRIAL ENLARGEMENT [-0.1mV P-WAVE IN V1/V2] LEFT BUNDLE BRANCH BLOCK [120+ ms QRS DURATION, 80+ ms Q/S IN V1/V2, 85+ ms R IN I/aVL/V5/V6] Compared to ECG 08/31/2021 01:09:12 Left-axis deviation no longer present Electronically Signed On 08-31-2021 17:12:15 CDT by Hitesh Mckenna M.D. [id number]
--- NOTE | 2021-08-31 10:52 | PC.CHAP ---
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 [] Patient/Family/Request visit [] Outpatient visit [] Follow-up visit [] Physician referral [] Code/Alert [x] Routine visit [] Staff referral [] Actively dying [] Patient sleeping [] Family support [] [] Out of room [] Palliative care [] [] Receiving care in room [] Pre-surgical visit [] Trauma [] Long length of stay [] ICU visit [] Other: Relational/Emotional Strength [x] Patient feels connected with others/family/visitors/staff [] Distress [] Loneliness/isolation [] Abandonment Spirituality of Patient [x] Person of Josy [] Attends Zoroastrianism of their Josy x[x]x Believes in Prayer [] Reads Bible or Methodist materials [] There are Spiritual issues to be addressed Roving Machine Operator Interventions [x] Prayer [x] Active listening [x] Non-anxious presence [x] Spiritual/emotional support [] Crisis/trauma care [] Spiritual counseling [] Bereavement support [] Provided bereavement packet [] Provided Bible/devotional materials [] Provided toy/stuffed animal, coloring book to patient or family member [] Provided Communion [] Anointing/[place] [] Salvation [x] Completed spiritual assessment [] Other: Impact on Illness or Injury [] Angry [] Fearful [] Anxious [] Often cries [] Exhaustion [] Unable to work [] Unable to attend samaritan [] Unable to walk/stand [] Unable to read [] Unable to drive [] Unable to eat/drink [] Unable to sleep [] Unable to be with family [] Patient intubated [] Other: Summary Time spent with patient 10 min
[2021-08-31 11:47] VITALS: BP 110/68; PULSE 73; RESP 16; TEMP 36.7; O2SAT 97
--- NOTE | 2021-08-31 12:47 | P.DS_ITS ---
Discharge Providers Date of Admission: 08/30/21 16:53 Date of Discharge: August 31, 2021 Attending Provider at Admission: Theodore Cottrell MD Attending Provider at Discharge: Theodore Cottrell MD Primary Care Provider: Daniela Price Diagnoses at Discharge Discharge Diagnosis (1) Pre-syncope: Status: Acute (2) CAD (coronary artery disease): Status: Acute Qualifiers: Coronary Disease-Associated Artery/Lesion type: [place] artery [place] vs. transplanted heart: [place] heart Associated angina: without angina Qualified Code(s): I25.10 - Atherosclerotic heart disease of [place] coronary artery without angina pectoris (3) Aortic stenosis: Status: Acute Qualifiers: Cardiac valve disease etiology: nonrheumatic Qualified Code(s): I35.0 - Nonrheumatic aortic (valve) stenosis (4) HTN (hypertension): Status: Acute Qualifiers: Hypertension type: essential hypertension Qualified Code(s): I10 - Essential (primary) hypertension (5) Osteoporosis: Status: Acute (6) Atherosclerosis of coronary artery of [place] heart without angina pectoris: Status: Acute Reason for Visit Reason for Visit: Low blood sugar, Says they have fluid on their anni Hospital Course Hospital Course Juliana Victoria is a 71 year old female with a past medical history of CAD status post PCI to mid LAD, has mild disease of left circumflex and right coronary artery, ischemic cardiomyopathy EF 40%, history of aortic valve stenosis, history of pulmonary hypertension, osteoporosis, hyperlipidemia, hypertension who presents [facility] due to presyncopal symptoms. Patient was admitted to [facility] for presyncopal symptoms, no significant evidence of UTI, no significant evidence of pneumonia, no significant orthostatic vitals, imaging as below head ct Brain: Mild atrophy and mild white matter chronic microvascular changes are noted. No hemorrhage or evidence of acute infarction. Cerebral ventricles: No ventriculomegaly. Paranasal sinuses: Visualized sinuses are unremarkable. No fluid levels. Mastoid air cells: Visualized mastoid air cells are well aerated. carotid us 1. Less than 50% stenosis of the bilateral internal carotid arteries by peak systolic velocity criteria 2. Minimal scattered atherosclerotic plaque carotid arteries. cardiac echo LV is mildly dilated ?LV systolic function is mildly reduced with EF of 40-45% ?Left atrium is dilated ?Aortic valve is thickened. Mild aortic stenosis with aortic ?valve area of 1.2cm2 and mean gradient? across the valve of ?13.6mmHg.? There is mild to moderate aortic regurgitation.? ?Trace tricuspid regurgitation.? ?Compared to prior echocardiogram from 11/20/2019, no significant ?changes are seen -No significant troponin elevation, no significant delta troponin, EKG shows chronic left bundle branch block, first-degree AV block, no acute ST-T wave changes, PVCs were seen -In terms of the etiology, possibly patient's aortic stenosis could be playing a role -However patient recently started Entresto, she tells me that her presyncopal symptoms are somewhat related to when she started Entresto -I spoke to Dr. Cohen, for now we will hold Entresto, follow-up with cardiology September 14, 2020 -I have also ordered an event monitor, follow-up with cardiology -If she were to have recurrent lightheadedness or dizziness go to emergency room Physical Exam Const: COMMON NORMALS: no acute distress and patient oriented x3 Resp: COMMON NORMALS: normal respiratory effort, No retractions, No use of accessory muscles and clear to auscultation bilaterally AUSCULTATION: clear to auscultation bilaterally Cardio: COMMON NORMALS: regular rate, regular rhythm, S1 normal heart sound present and S2 normal heart sound present RATE: regular rate RHYTHM: regular rhythm HEART SOUNDS: S1 normal heart sound present and S2 normal heart sound present GI: COMMON NORMALS: Normal to inspection, nondistended, normoactive bowel sounds present, Soft to palpation and non-tender PALPATION: Yes Soft to palpation Extremity: COMMON NORMALS: no pedal edema Neuro: COMMON NORMALS: patient oriented x3 Discharge Data Studies Completed and Pending Completed Studies During Hospitalization Category Date Time Status CT head wo con* [id number] Urgent Cat Scan 08/30/21 18:19 Completed XR chest 1V portable [id number] Stat Exams 08/30/21 16:07 Completed CV carotid duplex BI* [id number] Urgent Ultrasound 08/30/21 18:19 Completed CV. echo complete* [id number] Routine Ultrasound 08/30/21 18:19 Completed Pending at discharge Category Date Time Status Complete Blood Count w/Auto AM LABS Lab 09/01/21 04:00 Ordered Complete Blood Count w/Auto AM LABS Lab 09/02/21 04:00 Ordered Comprehensive Metabolic Panel AM LABS Lab 09/01/21 04:00 Ordered Comprehensive Metabolic Panel AM LABS Lab 09/02/21 04:00 Ordered Magnesium AM LABS Lab 09/01/21 04:00 Ordered Magnesium AM LABS Lab 09/02/21 04:00 Ordered Phosphorus AM LABS Lab 09/01/21 04:00 Ordered Phosphorus AM LABS Lab 09/02/21 04:00 Ordered Radiology Impressions Chest X-Ray 08/30/21 16:07 IMPRESSION: Cardiomegaly, negative for infiltrate. Carotid Doppler Study 08/30/21 18:19 IMPRESSION: 1. Less than 50% stenosis of the bilateral internal carotid arteries by peak systolic velocity criteria 2. Minimal scattered atherosclerotic plaque carotid arteries. REFERENCES: SRU CRITERIA. The degree of internal carotid artery stenosis is based on criteria defined by the Society of Radiologists in Ultrasound (SRU). Normal is no stenosis. Mild is less than 50% stenosis. Moderate is 50-69% stenosis. Severe is greater than 69% stenosis to near occlusion. Near occlusion is a markedly narrowed lumen. Total occlusion is no detectable patent lumen. Head CT 08/30/21 18:19 IMPRESSION: No acute intracranial abnormality. Laboratory Results WBC 6.1 10^3/uL (4.0-10.0) 08/31/21 04:40 RBC 4.03 10^6/uL (4.1-5.3) L 08/31/21 04:40 Hgb 12.8 g/dL (11.5-15.3) 08/31/21 04:40 Hct 39.7 % (37.0-47.0) 08/31/21 04:40 MCV 98.5 fl (81-99) 08/31/21 04:40 MCH 31.8 pg (28.0-34.0) 08/31/21 04:40 MCHC 32.2 g/dL (30.0-36.0) 08/31/21 04:40 RDW 13.2 % (12.1-15.1) 08/31/21 04:40 Plt Count 208 10^3/cmm (130-400) 08/31/21 04:40 MPV 10.0 fL (7.4-10.4) 08/31/21 04:40 Neut % (Auto) 51.4 % 08/31/21 04:40 Lymph % (Auto) 34.0 % 08/31/21 04:40 [place] % (Auto) 10.7 % 08/31/21 04:40 Eos % (Auto) 2.6 % 08/31/21 04:40 Baso % (Auto) 1.0 % 08/31/21 04:40 Neut # (Auto) 3.12 10^3/uL (1.8-7.7) 08/31/21 04:40 Lymph # (Auto) 2.1 10^3/uL (0.8-4.8) 08/31/21 04:40 [place] # (Auto) 0.7 10^3/uL (0.2-0.9) 08/31/21 04:40 Eos # (Auto) 0.2 10^3/uL (0.0-0.8) 08/31/21 04:40 Baso # (Auto) 0.1 10^3/uL (0.0-0.1) 08/31/21 04:40 Nucleated RBC % (auto) 0 % 08/31/21 04:40 Nucleated RBCs # 0.0 /100WBC 08/31/21 04:40 Sodium 131 mmol/L (136-145) L 08/31/21 04:40 Potassium 3.5 mmol/L (3.5-5.1) 08/31/21 04:40 Chloride 98 mmol/L (98-107) 08/31/21 04:40 Carbon Dioxide 21 mmol/L (22-29) L 08/31/21 04:40 Anion Gap 15.5 (5-19) 08/31/21 04:40 BUN 11 mg/dL (8-23) 08/31/21 04:40 Creatinine 0.4 mg/dL (0.5-0.9) L 08/31/21 04:40 GFR Calculation Not Reportable 08/31/21 04:40 Glucose 97 mg/dL (65-115) 08/31/21 04:40 Calculated Osmolality 271 mOsm/kg (285-295) L 08/31/21 04:40 Calcium 9.2 mg/dL (8.5-10.5) 08/31/21 04:40 Phosphorus 2.6 mg/dL (2.5-4.5) 08/31/21 04:40 Magnesium 2.1 mg/dL (1.7-2.3) 08/31/21 04:40 Total Bilirubin 0.6 mg/dL (0.15-1.2) 08/31/21 04:40 AST 20 U/L (0-32) 08/31/21 04:40 ALT 15 U/L (0-33) 08/31/21 04:40 Alkaline Phosphatase 75 IU/L (35-105) 08/31/21 04:40 Troponin T Baseline 6 ng/L (0-10) 08/30/21 15:38 Troponin T 120 Minute 6.00 ng/L (0-10) 08/30/21 18:50 Delta Troponin T 0 ABS# (0-10) 08/30/21 18:50 Troponin T Hi Sens 6Hr 6.13 ng/L (0-10) 08/30/21 21:10 Troponin T Hi Sens 6Hr Delta 0.13 ng/L (0-12) 08/30/21 21:10 NT-Pro-B Natriuret Pep 1786 pg/mL (0-125) H 08/31/21 04:04 Total Protein 7.0 g/dL (6.6-8.7) 08/31/21 04:40 Albumin 4.2 g/dL (3.5-5.2) 08/31/21 04:40 Globulin 2.8 g/dL (1.3-4.6) 08/31/21 04:40 Triglycerides 72 mg/dL (0-150) 08/31/21 04:04 Cholesterol 162 mg/dL (0-200) 08/31/21 04:04 LDL Cholesterol, Calc 44 mg/dL (50-129) L 08/31/21 04:04 HDL Cholesterol 104 mg/dL (60-100) H 08/31/21 04:04 LDL/HDL Ratio 0.42 RATIO (0.00-3.22) 08/31/21 04:04 Cholesterol/HDL Ratio 1.56 mg/dL (0.0-4.40) 08/31/21 04:04 Lipase 18 U/L (13-60) 08/30/21 15:38 TSH 3.65 uIU/mL (0.27-4.20) 08/31/21 04:40 Urine Color Straw (Yellow) 08/30/21 13:59 Urine Appearance Clear (CLEAR) 08/30/21 13:59 Urine pH 7 (5-7) 08/30/21 13:59 Ur Specific [place] 1.010 (1.005-1.030) 08/30/21 13:59 Urine Protein Neg (Negative) 08/30/21 13:59 Urine Glucose (UA) Norm (Normal) 08/30/21 13:59 Urine Ketones Negative (Negative) 08/30/21 13:59 Urine Blood Neg (Negative) 08/30/21 13:59 Urine Nitrate Negative (Negative) 08/30/21 13:59 Urine Bilirubin Neg (Negative) 08/30/21 13:59 Urine Urobilinogen Norm mg/dL (Negative) 08/30/21 13:59 Ur Leukocyte Esterase Negative (Negative) 08/30/21 13:59 Vitals Last Vital Signs Temp 98.1 F 08/31/21 11:47 Pulse 73 08/31/21 11:47 Resp 16 08/31/21 11:47 BP 110/68 08/31/21 11:47 Pulse Ox 97 08/31/21 11:47 Discharge Plan Discharge Patient Disposition: Home Condition: Stable Prescriptions: Continued Prolia 60 mg/mL syringe 60 mg SUBCUT .EVERY 6 MONTHS 0RF B-Complex Plus Vit C (calcium) 300 mg-150 mg calcium tablet 1 tab PO DAILY 0RF multivitamin Tablet 1 tab PO DAILY 0RF potassium chloride 10 mEq tablet extended release 10 meq PO DAILY 0RF furosemide 20 mg tablet 20 mg PO DAILY 0RF Bystolic 5 mg tablet 5 mg PO DAILY 0RF amlodipine 10 mg tablet 10 mg PO DAILY 0RF simvastatin 20 mg tablet 20 mg PO DAILY 0RF cholecalciferol (vitamin D3) 25 mcg (1,000 unit) capsule 1,000 unit PO DAILY 0RF aspirin [Adult Low Dose Aspirin] 81 mg tablet,delayed release (DR/EC) 81 mg PO DAILY 0RF Galzin 50 mg (zinc) capsule 50 mg PO DAILY 0RF celecoxib 200 mg Capsule 200 mg PO BID PRN (Reason: Pain) 0RF Discontinued Entresto 24-26 mg tablet 1 tab PO BID Qty: 60 5RF Discharge Orders: Discharge Order (Routine); Ordered 08/31/21 Ordered By: Theodore Cottrell Other Ambulatory Orders: MCT/Event Monitor 21 Days (Routine) Timeframe: 1 Day Facility: [facility] - Location: Radiology Ordered By: Theodore Cottrell Referrals: Daniela Price PA [Primary Care Provider] - Discharge Diet: Cardiac Discharge Activity: Resume usual activity Patient Instructions: Near Syncope (GEN), Lightheadedness (ED), Opioid Safety Activity Restrictions/Additional Instructions: - Please keep appoint with cardiology on September 14, 2021 -If you feel lightheaded or dizzy come back to the emergency room -Do not take Entresto until instructed otherwise Discharge Attestations Time Spent in Discharge Care*: less than 30 min Quality Metrics Clinical Quality Measures [ No reported AMI, CVA or VTE this stay] Coding Level of Care Code Acute Chg FW DC note Diagnoses Pre-syncope R55 CAD (coronary artery disease) I25.10 Coronary Disease-Associated Artery/Lesion type: [place] artery [place] vs. transplanted heart: [place] heart Associated angina: without angina Aortic stenosis I35.0 Cardiac valve disease etiology: nonrheumatic HTN (hypertension) I10 Hypertension type: essential hypertension Osteoporosis M81.0 Atherosclerosis of coronary artery of [place] heart without angina pectoris I25.10
[2021-08-31 13:41] VITALS: BP 110/68; PULSE 73; RESP 16; TEMP 36.7; O2SAT 97
--- NOTE | 2021-08-31 13:50 | PC.NURSE ---
patient verbalized understanding of discharge instructions, home medications, and follow up appointments. patient verbalized understanding that she needs to be to heart care by 1500 to have an event monitor placed.
== END 2021-08-31 13:49 | disposition home or self-care (01) ==
LOC: ER 16:23 → MEDSURG 18:00
PROVIDERS: Admitting Provider Family Medicine; Emergency Provider Emergency Medicine; PCP Physician Assistant; Visit Provider Family Medicine
DX: R55 Syncope and collapse (principal); I25.10 Atherosclerotic heart disease of native coronary artery without angina pectoris; I35.0 Nonrheumatic aortic (valve) stenosis; I10 Essential (primary) hypertension; M81.0 Age-related osteoporosis without current pathological fracture; Z79.82 Long term (current) use of aspirin; Z87.891 Personal history of nicotine dependence; I65.23 Occlusion and stenosis of bilateral carotid arteries
CPT/HCPCS: 36415; 70450; 71045; 80053; 80061; 81003; 83690; 83735; 83880; 84100; 84443; 84484; 85025; 93005; 93306; 93880; 96360; 96361; 96372; 99285; G0378; J1650; J7030

== ENCOUNTER → 2021-08-31 13:58 | Outpatient (BNVA) | payer MEDICARE, OTHER, SELFPAY | PROVIDERS: PCP Physician Assistant; Visit Provider Internal Medicine Cardiovascular Disease | DX: R55 Syncope and collapse (principal); R42 Dizziness and giddiness; I49.3 Ventricular premature depolarization; I48.91 Unspecified atrial fibrillation | CPT/HCPCS: 93229 ==

== ENCOUNTER → 2021-09-14 12:53 | Outpatient (BNVA) | payer MEDICARE, OTHER, SELFPAY | PROVIDERS: PCP Physician Assistant; Visit Provider Nurse Practitioner Family | DX: I50.22 Chronic systolic (congestive) heart failure (principal); Z87.891 Personal history of nicotine dependence | CPT/HCPCS: 99213 ==

== ENCOUNTER → 2021-10-13 10:28 | Outpatient (BNVA) | payer MEDICARE, OTHER, SELFPAY | PROVIDERS: PCP Physician Assistant; Visit Provider Internal Medicine Cardiovascular Disease | DX: I11.0 Hypertensive heart disease with heart failure (principal); I50.20 Unspecified systolic (congestive) heart failure; I49.9 Cardiac arrhythmia, unspecified; I25.10 Atherosclerotic heart disease of native coronary artery without angina pectoris; I35.0 Nonrheumatic aortic (valve) stenosis; Z87.891 Personal history of nicotine dependence | CPT/HCPCS: 99214 ==

== ENCOUNTER → 2021-10-21 08:07 | Outpatient (BNVA) | payer MEDICARE, OTHER, SELFPAY | PROVIDERS: PCP Physician Assistant; Visit Provider Internal Medicine | DX: E21.0 Primary hyperparathyroidism (principal); M81.0 Age-related osteoporosis without current pathological fracture; Z87.891 Personal history of nicotine dependence | CPT/HCPCS: 99214 ==

== ENCOUNTER 2021-11-15 14:37 | Outpatient (CLI) | payer MEDICARE, OTHER, SELFPAY ==
--- NOTE | 2021-11-15 14:45 | XR_ITS ---
WS: [id number] SCREENING DEXA SCAN [employer] CLINICAL INFORMATION: POSTMENOPAUSAL COMPARISON: FINDINGS: The L1-L4 bone mineral density measures 1.276 g/cm2. This corresponds to a T score score of 0.8 and Z score of 2.9. Right femoral neck bone mineral density measures 0.720. This corresponds to a T score -2.3 and Z scor e of -0.5. LEFT forearm bone mineral density measures 0.695. This corresponds to a T score of -2.1 and Z score o f -0.1. XR/XR DEXA axial skeleton* [id number] IMPRESSION: Normal bone mineralization lumbar spine. Osteopenia RIGHT femoral neck approach ing osteoporosis. Osteopenia LEFT forearm. Patient's FRAX calculated 10 year probability for major osteoporotic fracture i s 28.5 % and osteoporotic hip fracture is 13.2%. Bone mineral density has decreased -1.7% in the lumbar spine and increased 1.4% in the RIGHT femoral neck and decreased -1.1% in the LEFT forearm since 19
== END 2021-11-15 14:38 | disposition home or self-care (01) ==
LOC: RAD 14:40
PROVIDERS: PCP Physician Assistant; Visit Provider Physician Assistant
DX: Z78.0 Asymptomatic menopausal state (principal); M85.80 Other specified disorders of bone density and structure, unspecified site
CPT/HCPCS: 77080

== ENCOUNTER → 2022-01-19 09:46 | Outpatient (BNVA) | payer MEDICARE, OTHER, SELFPAY | PROVIDERS: PCP Physician Assistant; Visit Provider Internal Medicine Cardiovascular Disease | DX: I11.0 Hypertensive heart disease with heart failure (principal); I50.20 Unspecified systolic (congestive) heart failure; I25.10 Atherosclerotic heart disease of native coronary artery without angina pectoris; I25.5 Ischemic cardiomyopathy; I35.1 Nonrheumatic aortic (valve) insufficiency; R09.89 Other specified symptoms and signs involving the circulatory and respiratory systems; Z87.891 Personal history of nicotine dependence; I49.8 Other specified cardiac arrhythmias | CPT/HCPCS: 36415; 80048; 83880; 99214 ==

== ENCOUNTER → 2022-02-09 13:04 | Outpatient (BNVA) | payer MEDICARE, OTHER, SELFPAY | PROVIDERS: PCP Physician Assistant; Visit Provider Nurse Practitioner Family | DX: I11.0 Hypertensive heart disease with heart failure (principal); I50.20 Unspecified systolic (congestive) heart failure; Z87.891 Personal history of nicotine dependence | CPT/HCPCS: 99214 ==

== ENCOUNTER 2022-02-22 08:18 | Outpatient (CLI) | payer MEDICARE, OTHER, SELFPAY ==
[2022-02-22 09:37] LABS: Anion Gap 16.3 (5-19); Blood Urea Nitrogen 16 mg/dL (8-23); Carbon Dioxide 24 mmol/L (22-29); Chloride 87 mmol/L (98-107); Glucose 90 mg/dL (65-115); NT Pro B Type Natriuretic Pept 2038 pg/mL (0-125); Osmolality Calculated 257 mOsm/kg (285-295); Potassium 4.3 mmol/L (3.5-5.1); Sodium 123 mmol/L (136-145)
== END 2022-02-22 08:19 | disposition home or self-care (01) ==
LOC: LAB 08:23
PROVIDERS: PCP Physician Assistant; Visit Provider Nurse Practitioner Family
DX: I50.20 Unspecified systolic (congestive) heart failure (principal)
CPT/HCPCS: 36415; 80048; 83880

== ENCOUNTER 2022-02-25 08:13 | Outpatient (CLI) | payer MEDICARE, OTHER, SELFPAY ==
[2022-02-25 09:01] LABS: Anion Gap 16.6 (5-19); Blood Urea Nitrogen 9 mg/dL (8-23); Calcium 9.8 mg/dL (8.5-10.5); Carbon Dioxide 23 mmol/L (22-29); Chloride 95 mmol/L (98-107); Glucose 98 mg/dL (65-115); NT Pro B Type Natriuretic Pept 3224 pg/mL (0-125); Osmolality Calculated 269 mOsm/kg (285-295); Potassium 4.6 mmol/L (3.5-5.1); Sodium 130 mmol/L (136-145)
== END 2022-02-25 08:14 | disposition home or self-care (01) ==
LOC: LAB 08:17
PROVIDERS: PCP Physician Assistant; Visit Provider Internal Medicine Cardiovascular Disease
DX: I49.9 Cardiac arrhythmia, unspecified (principal); I50.20 Unspecified systolic (congestive) heart failure; R55 Syncope and collapse; I25.10 Atherosclerotic heart disease of native coronary artery without angina pectoris
CPT/HCPCS: 36415; 80048; 83880

== ENCOUNTER 2022-03-17 11:34 | Outpatient (CLI) | payer MEDICARE, OTHER, SELFPAY ==
--- NOTE | 2022-03-17 11:45 | USCV_ITS ---
Juliana Victoria Age: 71 Gender: F : 1950 Exam Date: 03/17/2022 12:01 Ordering Phys: Pete Cohen MD ([email or web address]) Technologist: Santi Rasmussen [place] [facility] [place]: [place] occlusion Risk Factors: Previous Vascular Surgery: Right Brachial BP: / Left Brachial BP: / Right Left Velocity (cm/s) Spectral Plaque Velocity (cm/s) Spectral Plaque Syst/Diast Broadening Syst/Diast Broadening 76.90/ 6.00 Prox CCA 75.40 / 11.90 62.40/ 11.20 Mid CCA 62.10 / 10.90 40.60/ 7.30 Distal CCA 60.90 / 14.40 58.70/ 14.40 Prox ICA 72.20 / 19.40 91.40/ 26.50 Mid ICA 78.50 / 21.00 100.80/19.70 Distal ICA 104.70/ 28.70 52.60 ECA 51.80 1.46 ICA/CCA 1.26 Antegrade Vertebral Antegrade 65.80/ 13.70 cm/s 54.40/ 13.20 cm/s Tri Subclavian Tri 69.10 94.00 FINDINGS No significant changes since 08/2021 CONCLUSIONS Right ICA stenosis <50%. Mild atheromatous plaque right carotid bulb/ICA. Left ICA stenosis <50%. Mild atheromatous plaque left carotid bulb/ICA. Normal antegrade Doppler flow noted in the right vertebral artery. Normal antegrade Doppler flow noted in the left vertebral artery. Rashawn Silva MD (Electronically Signed) Final Date: 17 March 2022 14:31 S
== END 2022-03-17 11:35 | disposition home or self-care (01) ==
LOC: RAD 11:35
PROVIDERS: PCP Physician Assistant; Visit Provider Internal Medicine Cardiovascular Disease
DX: I50.20 Unspecified systolic (congestive) heart failure (principal); I77.9 Disorder of arteries and arterioles, unspecified; R55 Syncope and collapse; I65.23 Occlusion and stenosis of bilateral carotid arteries
CPT/HCPCS: 93880

== ENCOUNTER 2022-03-22 08:18 | Outpatient (CLI) | payer MEDICARE, OTHER, SELFPAY ==
[2022-03-22 09:28] LABS: Anion Gap 16.4 (5-19); Blood Urea Nitrogen 11 mg/dL (8-23); Calcium 10.2 mg/dL (8.5-10.5); Carbon Dioxide 21 mmol/L (22-29); Chloride 94 mmol/L (98-107); Glucose 104 mg/dL (65-115); NT Pro B Type Natriuretic Pept 3663 pg/mL (0-125); Osmolality Calculated 264 mOsm/kg (285-295); Potassium 4.4 mmol/L (3.5-5.1); Sodium 127 mmol/L (136-145)
== END 2022-03-22 08:19 | disposition home or self-care (01) ==
LOC: LAB 08:20
PROVIDERS: PCP Physician Assistant; Visit Provider Internal Medicine Cardiovascular Disease
DX: E87.1 Hypo-osmolality and hyponatremia (principal); I25.10 Atherosclerotic heart disease of native coronary artery without angina pectoris; I49.9 Cardiac arrhythmia, unspecified; I50.20 Unspecified systolic (congestive) heart failure
CPT/HCPCS: 36415; 80048; 83880

== ENCOUNTER 2022-04-19 09:08 | Outpatient (CLI) | payer MEDICARE, SELFPAY ==
[2022-04-19 09:50] LABS: Ionized Calcium 1.2 mmol/L (1.1-1.4)
[2022-04-19 10:37] LABS: Calcium 10.4 mg/dL (8.5-10.5)
[2022-04-19 10:44] LABS: Parathyroid Hormone 36.1 pg/mL (15-65)
[2022-04-19 10:48] LABS: Alanine Aminotransferase 20 U/L (0-33); Albumin Level 4.9 g/dL (3.5-5.2); Alkaline Phosphatase 78 U/L (35-105); Blood Urea Nitrogen 13 mg/dL (8-23); Calcium 9.6 mg/dL (8.5-10.5); Carbon Dioxide 23 mmol/L (22-29); Chloride 94 mmol/L (98-107); Globulin 2.5 g/dL (1.3-4.6); Glucose 96 mg/dL (65-115); NT Pro B Type Natriuretic Pept 2616 pg/mL (0-125); Osmolality Calculated 268 mOsm/kg (285-295); Sodium 129 mmol/L (136-145); Total Bilirubin 0.6 mg/dL (0.15-1.2); Total Protein 7.4 g/dL (6.6-8.7)
[2022-04-19 10:50] LABS: Anion Gap 16.7 (5-19); Aspartate Amino Transferase 27 U/L (0-32); Potassium 4.7 mmol/L (3.5-5.1)
== END 2022-04-19 09:09 | disposition home or self-care (01) ==
LOC: LAB 09:09
PROVIDERS: Internal Medicine; PCP Physician Assistant; Visit Provider Internal Medicine Cardiovascular Disease
DX: I25.10 Atherosclerotic heart disease of native coronary artery without angina pectoris (principal); I25.5 Ischemic cardiomyopathy; I49.9 Cardiac arrhythmia, unspecified; I50.20 Unspecified systolic (congestive) heart failure; R55 Syncope and collapse; E21.0 Primary hyperparathyroidism
CPT/HCPCS: 36415; 80048; 80053; 82310; 82330; 83880; 83970

== ENCOUNTER → 2022-04-29 08:31 | Outpatient (BNVA) | payer MEDICARE, SELFPAY | PROVIDERS: PCP Physician Assistant; Visit Provider Internal Medicine | DX: E21.0 Primary hyperparathyroidism (principal); M81.0 Age-related osteoporosis without current pathological fracture | CPT/HCPCS: 99214 ==

== ENCOUNTER → 2022-05-23 15:40 | Outpatient (BNVA) | payer MEDICARE, SELFPAY | PROVIDERS: PCP Physician Assistant; Visit Provider Internal Medicine Cardiovascular Disease | DX: R06.02 Shortness of breath (principal); I11.0 Hypertensive heart disease with heart failure; I50.20 Unspecified systolic (congestive) heart failure; R09.89 Other specified symptoms and signs involving the circulatory and respiratory systems; I49.9 Cardiac arrhythmia, unspecified; I25.10 Atherosclerotic heart disease of native coronary artery without angina pectoris; I25.5 Ischemic cardiomyopathy; Z87.891 Personal history of nicotine dependence | CPT/HCPCS: 80048; 83880; 99214 ==

== ENCOUNTER 2022-06-29 07:53 | Outpatient (CLI) | payer MEDICARE, SELFPAY ==
[2022-06-29 09:35] LABS: Anion Gap 17.5 (5-19); Blood Urea Nitrogen 16 mg/dL (8-23); Carbon Dioxide 26 mmol/L (22-29); Chloride 91 mmol/L (98-107); Glucose 96 mg/dL (65-115); NT Pro B Type Natriuretic Pept 1657 pg/mL (0-125); Osmolality Calculated 271 mOsm/kg (285-295); Potassium 4.5 mmol/L (3.5-5.1); Sodium 130 mmol/L (136-145)
== END 2022-06-29 07:54 | disposition home or self-care (01) ==
LOC: LAB 07:56
PROVIDERS: PCP Physician Assistant; Visit Provider Internal Medicine Cardiovascular Disease
DX: I25.10 Atherosclerotic heart disease of native coronary artery without angina pectoris (principal); I49.9 Cardiac arrhythmia, unspecified; I50.20 Unspecified systolic (congestive) heart failure; R09.89 Other specified symptoms and signs involving the circulatory and respiratory systems
CPT/HCPCS: 36415; 80048; 83880

== ENCOUNTER 2022-08-02 07:44 | Outpatient (CLI) | payer MEDICARE, SELFPAY ==
[2022-08-02 08:25] LABS: Anion Gap 16.4 (5-19); Blood Urea Nitrogen 16 mg/dL (8-23); Calcium 10.1 mg/dL (8.5-10.5); Carbon Dioxide 24 mmol/L (22-29); Chloride 91 mmol/L (98-107); Glucose 94 mg/dL (65-115); Osmolality Calculated 265 mOsm/kg (285-295); Potassium 4.4 mmol/L (3.5-5.1); Sodium 127 mmol/L (136-145)
== END 2022-08-02 07:45 | disposition home or self-care (01) ==
LOC: LAB 07:48
PROVIDERS: PCP Physician Assistant; Visit Provider Internal Medicine Cardiovascular Disease
DX: I10 Essential (primary) hypertension (principal); I25.10 Atherosclerotic heart disease of native coronary artery without angina pectoris; I50.20 Unspecified systolic (congestive) heart failure
CPT/HCPCS: 36415; 80048

== ENCOUNTER 2022-08-23 07:54 | Outpatient (CLI) | payer MEDICARE, SELFPAY ==
[2022-08-23 08:41] LABS: Blood Urea Nitrogen 15 mg/dL (8-23); Calcium 9.4 mg/dL (8.5-10.5); Carbon Dioxide 23 mmol/L (22-29); Chloride 94 mmol/L (98-107); Glucose 109 mg/dL (65-115); NT Pro B Type Natriuretic Pept 1403 pg/mL (0-125); Osmolality Calculated 269 mOsm/kg (285-295); Sodium 129 mmol/L (136-145)
[2022-08-23 09:03] LABS: Anion Gap 16.2 (5-19); Potassium 4.2 mmol/L (3.5-5.1)
== END 2022-08-23 07:55 | disposition home or self-care (01) ==
PROVIDERS: PCP Physician Assistant; Visit Provider Internal Medicine Cardiovascular Disease
DX: I11.0 Hypertensive heart disease with heart failure (principal); I50.20 Unspecified systolic (congestive) heart failure; I25.5 Ischemic cardiomyopathy; I25.10 Atherosclerotic heart disease of native coronary artery without angina pectoris; I49.9 Cardiac arrhythmia, unspecified; R09.89 Other specified symptoms and signs involving the circulatory and respiratory systems
CPT/HCPCS: 36415; 80048; 83880

== ENCOUNTER 2022-10-14 08:09 | Outpatient (CLI) | payer MEDICARE, SELFPAY ==
[2022-10-14 09:21] LABS: Calcium 9.9 mg/dL (8.5-10.5); Parathyroid Hormone 22.3 pg/mL (15-65)
== END 2022-10-14 08:10 | disposition home or self-care (01) ==
PROVIDERS: PCP Physician Assistant; Visit Provider Internal Medicine
DX: E21.0 Primary hyperparathyroidism (principal); M81.0 Age-related osteoporosis without current pathological fracture
CPT/HCPCS: 36415; 82310; 83970

== ENCOUNTER 2022-11-04 08:14 | Outpatient (CLI) | payer MEDICARE, SELFPAY ==
--- NOTE | 2022-11-04 08:19 | MM_ITS ---
WS: [id number] BILATERAL SCREENING DIGITAL TOMOSYNTHESIS MAMMOGRAM WITH CAD HISTORY: SCREENING COMPARISON: 09/30/2020, 10/19/2018 Bilateral CC and MLO views with tomosynthesis and synthetic mammography submitted. Computer aided det ection analyzed. Breast composition: There are scattered areas of fibroglandular density. No suspicious masses, microc alcifications or architectural distortion. MM/[place] [id number] IMPRESSION: BI-RADS: 1-Negative FOLLOW UP: 1 Year Follow-up
== END 2022-11-04 08:15 | disposition home or self-care (01) ==
PROVIDERS: PCP Physician Assistant; Visit Provider Physician Assistant
DX: Z12.31 Encounter for screening mammogram for malignant neoplasm of breast (principal)
CPT/HCPCS: 77063; 77067

== ENCOUNTER → 2022-11-14 08:00 | Outpatient (BNVA) | payer MEDICARE, SELFPAY | PROVIDERS: PCP Physician Assistant; Visit Provider Internal Medicine | DX: E21.0 Primary hyperparathyroidism (principal); E55.9 Vitamin D deficiency, unspecified; M81.0 Age-related osteoporosis without current pathological fracture | CPT/HCPCS: 99214 ==

== ENCOUNTER → 2022-12-06 10:54 | Outpatient (BNVA) | payer MEDICARE, SELFPAY | PROVIDERS: PCP Physician Assistant; Visit Provider Internal Medicine Cardiovascular Disease | DX: R06.02 Shortness of breath (principal); I25.10 Atherosclerotic heart disease of native coronary artery without angina pectoris; I49.9 Cardiac arrhythmia, unspecified; I11.0 Hypertensive heart disease with heart failure; I50.20 Unspecified systolic (congestive) heart failure; I35.0 Nonrheumatic aortic (valve) stenosis; Z87.891 Personal history of nicotine dependence | CPT/HCPCS: 36415; 80048; 83880; 99214 ==

== ENCOUNTER 2022-12-21 08:21 | Outpatient (CLI) | payer MEDICARE, SELFPAY ==
--- NOTE | 2022-12-21 08:45 | USCV_ITS ---
Juliana Victoria Age: 72 Gender: F : 1950 Exam Date: 12/21/2022 08:35 Ordering Phys: Pete Cohen MD ([email or web address]) Technologist: Solomon Paredes Exam Location: [facility] [place] Indication: CHF BP: 115 / 70 HR: 67 Rhythm: Sinus Technical Quality: Adequate MEASUREMENTS (Male / Female) Normal Values 2D ECHO LV Diastolic Diameter PLAX 5.4 cm 4.2 - 5.9 / 3.9 - 5.3 cm LV Systolic Diameter PLAX 3.4 cm IVS Diastolic Thickness 1.1 cm 0.6 - 1.0 / 0.6 - 0.9 cm IVS Systolic Thickness 1.6 cm LVPW Diastolic Thickness 1.0 cm 0.6 - 1.0 / 0.6 - 0.9 cm LVPW Systolic Thickness 1.2 cm LVOT Diameter 2.0 cm LV Ejection Fraction 2D Teich 67.7 % LV Ejection Fraction MOD 2C 77.7 % LV Ejection Fraction 2C AL 79.1 % LA Diameter 3.9 cm IVC Diameter 1.4 cm M-MODE Aortic Annulus Diameter 2.7 cm LA Ao Ratio MM 1.4 MV E Point Septal Separation 1.5 cm DOPPLER AV Peak Velocity 269.0 cm/s LVOT Peak Velocity 111.0 cm/s AV Area Cont Eq vti 1.7 cm squared AV Area Cont Eq pk 1.3 cm squared MV Area PHT 5.0 cm squared Mitral E to A Ratio 0.9 MV E' Velocity 56.0 cm/s Mitral E to MV E' Ratio 10.3 Mitral E to LV E' Lateral Ratio 11.8 Mitral E to LV E' Septal Ratio 9.2 TR Peak Velocity 292.0 cm/s TR Peak Gradient 34.1 mmHg TV Peak E Velocity 117.0 cm/s Right Atrial Pressure 3.0 mmHg Pulmonary Artery Systolic Pressu 37.1 mmHg RV Acceleration Time 0.1 s FINDINGS Left Ventricle Diffuse hypokinesia of the left ventricular ejection fraction on 45%. Mildly dilated LV cavity.mild left ventricular hypertrophy. Right Ventricle Normal right ventricular size and systolic function. Right Atrium The right atrium is normal in size. Left Atrium Moderately increased left atrial size. Mitral Valve Thickened mitral valve. Moderate mitral valve regurgitation. Aortic Valve Mild aortic valve stenosis, mean gradient 11.3 mmHg, RACHELE 1.7 cm squared. Moderate aortic valve calcification. [id number] aortic valve regurgitation. Tricuspid Valve Trace tricuspid valve regurgitation. Pulmonic Valve Pulmonic valve not well visualized. Pericardium Normal pericardium without effusion. Aorta Normal ascending aorta dimension. IVC Normal inferior vena cava. CONCLUSIONS Diffuse hypokinesia of the left ventricular ejection fraction on 45%. Mildly dilated LV cavity. Mild left ventricular hypertrophy. Moderately increased left atrial size. Mild aortic valve stenosis, mean gradient 11.3 mmHg, RACHELE 1.7 cm squared. Moderate aortic valve calcification. [id number] aortic valve regurgitation. Thickened mitral valve. Moderate mitral valve regurgitation. Trace tricuspid valve regurgitation. Compared to the study from 08/30/2021, there may not be a significant change Dr Pete Cohen MD FAC (Electronically Signed) Final Date: 22 December 2022 09:09 S
== END 2022-12-21 08:22 | disposition home or self-care (01) ==
PROVIDERS: PCP Physician Assistant; Visit Provider Internal Medicine Cardiovascular Disease
DX: I42.9 Cardiomyopathy, unspecified (principal); R06.09 Other forms of dyspnea; I50.9 Heart failure, unspecified; I51.7 Cardiomegaly; I35.2 Nonrheumatic aortic (valve) stenosis with insufficiency; I34.89 Other nonrheumatic mitral valve disorders; I34.0 Nonrheumatic mitral (valve) insufficiency
CPT/HCPCS: 93306

== ENCOUNTER 2023-05-09 08:18 | Outpatient (CLI) | payer MEDICARE, SELFPAY ==
[2023-05-09 09:18] LABS: Calcium 10.4 mg/dL (8.5-10.5)
[2023-05-09 09:23] LABS: 25 Hydroxy Vitamin D 74 ng/mL (30-100)
[2023-05-09 09:26] LABS: Parathyroid Hormone 18.7 pg/mL (15-65)
== END 2023-05-09 08:19 | disposition home or self-care (01) ==
LOC: LAB 08:21
PROVIDERS: PCP Physician Assistant; Visit Provider Internal Medicine
DX: E21.0 Primary hyperparathyroidism (principal); E55.9 Vitamin D deficiency, unspecified; M81.0 Age-related osteoporosis without current pathological fracture
CPT/HCPCS: 36415; 82306; 82310; 83970

== ENCOUNTER → 2023-05-17 08:36 | Outpatient (BNVA) | payer MEDICARE, SELFPAY | PROVIDERS: PCP Physician Assistant; Visit Provider Internal Medicine | DX: E21.0 Primary hyperparathyroidism (principal); M81.0 Age-related osteoporosis without current pathological fracture; E55.9 Vitamin D deficiency, unspecified | CPT/HCPCS: 99214 ==

== ENCOUNTER → 2023-06-13 12:20 | Outpatient (BNVA) | payer MEDICARE, SELFPAY | PROVIDERS: PCP Physician Assistant; Visit Provider Internal Medicine Cardiovascular Disease | DX: R06.02 Shortness of breath (principal) | CPT/HCPCS: 36415; 80048; 83880; 99214 ==

== ENCOUNTER 2023-07-04 08:06 | Outpatient (CLI) | payer MEDICARE, SELFPAY ==
[2023-07-04 09:30] LABS: Anion Gap 15.2 (5-19); Blood Urea Nitrogen 22 mg/dL (8-23); Calcium 10.4 mg/dL (8.5-10.5); Carbon Dioxide 25 mmol/L (22-29); Chloride 91 mmol/L (98-107); Glucose 106 mg/dL (65-115); NT Pro B Type Natriuretic Pept 838 pg/mL (0-125); Osmolality Calculated 268 mOsm/kg (285-295); Potassium 4.2 mmol/L (3.5-5.1); Sodium 127 mmol/L (136-145)
== END 2023-07-04 08:07 | disposition home or self-care (01) ==
LOC: LAB 08:08
PROVIDERS: PCP Physician Assistant; Visit Provider Internal Medicine Cardiovascular Disease
DX: I50.20 Unspecified systolic (congestive) heart failure (principal)
CPT/HCPCS: 36415; 80048; 83880

== ENCOUNTER 2023-08-08 07:47 | Outpatient (CLI) | payer MEDICARE, SELFPAY ==
[2023-08-08 08:31] LABS: Anion Gap 15.6 (5-19); Blood Urea Nitrogen 19 mg/dL (8-23); Calcium 9.6 mg/dL (8.5-10.5); Carbon Dioxide 22 mmol/L (22-29); Chloride 93 mmol/L (98-107); Glucose 103 mg/dL (65-115); Osmolality Calculated 265 mOsm/kg (285-295); Potassium 4.6 mmol/L (3.5-5.1); Sodium 126 mmol/L (136-145)
[2023-08-08 08:38] LABS: Calcium 9.7 mg/dL (8.5-10.5)
[2023-08-08 08:45] LABS: Parathyroid Hormone 20.9 pg/mL (15-65)
[2023-08-08 08:48] LABS: 25 Hydroxy Vitamin D 71 ng/mL (30-100)
== END 2023-08-08 07:48 | disposition home or self-care (01) ==
LOC: LAB 07:49
PROVIDERS: PCP Physician Assistant; Visit Provider Internal Medicine
DX: M81.0 Age-related osteoporosis without current pathological fracture (principal); E21.0 Primary hyperparathyroidism; E55.9 Vitamin D deficiency, unspecified
CPT/HCPCS: 36415; 80048; 82306; 82310; 83970

== ENCOUNTER → 2023-08-16 07:45 | Outpatient (BNVA) | payer MEDICARE, SELFPAY | PROVIDERS: PCP Physician Assistant; Visit Provider Internal Medicine | DX: E21.0 Primary hyperparathyroidism (principal); M81.0 Age-related osteoporosis without current pathological fracture; E55.9 Vitamin D deficiency, unspecified | CPT/HCPCS: 99214 ==

== ENCOUNTER 2023-09-01 08:17 | Oncology outpatient (recurring) (ONCR) | payer MEDICARE, SELFPAY ==
[2023-09-01 08:32] VITALS: BP 151/84; PULSE 61; TEMP 36.3; O2SAT 98
[2023-09-01] MEDS: denosumab 60 mg SDV SUBCUT (08:33)
== END 2023-09-15 23:59 | disposition home or self-care (01) ==
LOC: ONCMED 08:18
PROVIDERS: PCP Physician Assistant; Visit Provider Internal Medicine
DX: M81.0 Age-related osteoporosis without current pathological fracture (principal)
CPT/HCPCS: 96372; J0897

== ENCOUNTER 2023-11-29 12:46 | Outpatient (CLI) | payer MEDICARE, SELFPAY ==
--- NOTE | 2023-11-29 13:00 | XR_ITS ---
WS: [id number] DEXA (DUAL ENERGY X-RAY ABSORPTIOMETRY) Bone mineral density was performed using a [employer] machine. HISTORY: osteoporosis COMPARISON: 11/15/2021 Lumbar spine BMD (L1-L4): 1.311 g/cm2 T score: 1.1 Z score: 3.2 Total hip BMD: Right: 0.715. T score: -2.3 Z score: -0.4 Left forearm BMD: 0.626 g/cm2. T score: -2.9 Z score: -0.7 10 year probability of a major osteoporotic fracture is 27.7%. Compared to the prior study from 11/15/2021. Lumbar spine bone mineral density has increased by 2.7%. RIGHT hip bone mineral density has decreased by 0.7%. LEFT forearm bone mineral density has decreased by 9.9%. XR/XR DEXA axial skeleton* [id number] IMPRESSION: OSTEOPOROSIS based upon the WHO classification for females. Mild but significant increase in bone mineral density within the lumbar spine s praveen the prior study. Significant decrease in bone mineral density within the LEFT forearm.
== END 2023-11-29 12:47 | disposition home or self-care (01) ==
LOC: RAD 12:46
PROVIDERS: PCP Physician Assistant; Visit Provider Internal Medicine
DX: E21.0 Primary hyperparathyroidism (principal); M81.0 Age-related osteoporosis without current pathological fracture; E55.9 Vitamin D deficiency, unspecified
CPT/HCPCS: 77080

== ENCOUNTER → 2023-12-05 10:48 | Outpatient (BNVA) | payer MEDICARE, SELFPAY | PROVIDERS: PCP Physician Assistant; Visit Provider Nurse Practitioner Family | DX: I35.0 Nonrheumatic aortic (valve) stenosis (principal); I25.10 Atherosclerotic heart disease of native coronary artery without angina pectoris; I10 Essential (primary) hypertension; Z87.891 Personal history of nicotine dependence | CPT/HCPCS: 99214 ==

== ENCOUNTER 2023-12-12 07:50 | Outpatient (CLI) | payer MEDICARE, SELFPAY ==
[2023-12-12 08:49] LABS: Alanine Aminotransferase 19 U/L (0-33); Albumin Level 4.8 g/dL (3.5-5.2); Alkaline Phosphatase 75 U/L (35-105); Blood Urea Nitrogen 14 mg/dL (8-23); Calcium 9.7 mg/dL (8.5-10.5); Carbon Dioxide 18 mmol/L (22-29); Chloride 91 mmol/L (98-107); Globulin 2.9 g/dL (1.3-4.6); Glucose 82 mg/dL (65-115); Osmolality Calculated 260 mOsm/kg (285-295); Sodium 125 mmol/L (136-145); Total Bilirubin 0.6 mg/dL (0.15-1.2); Total Protein 7.7 g/dL (6.6-8.7)
[2023-12-12 08:52] LABS: Anion Gap 20.9 (5-19); Aspartate Amino Transferase 24 U/L (0-32); Potassium 4.9 mmol/L (3.5-5.1)
[2023-12-12 09:05] LABS: 25 Hydroxy Vitamin D 65 ng/mL (30-100)
== END 2023-12-12 07:51 | disposition home or self-care (01) ==
LOC: LAB 07:51
PROVIDERS: PCP Physician Assistant; Visit Provider Internal Medicine
DX: E21.0 Primary hyperparathyroidism (principal); M81.0 Age-related osteoporosis without current pathological fracture; E55.9 Vitamin D deficiency, unspecified
CPT/HCPCS: 36415; 80053; 82306

== ENCOUNTER → 2023-12-20 07:45 | Outpatient (BNVA) | payer MEDICARE, SELFPAY | PROVIDERS: PCP Physician Assistant; Visit Provider Internal Medicine | DX: M81.0 Age-related osteoporosis without current pathological fracture (principal); E55.9 Vitamin D deficiency, unspecified | CPT/HCPCS: 99214 ==

== ENCOUNTER 2024-01-05 08:33 | Outpatient (CLI) | payer MEDICARE, SELFPAY ==
--- NOTE | 2024-01-05 08:45 | USCV_ITS ---
Juliana Victoria Age: 73 Gender: F : 1950 Exam Date: 01/05/2024 08:57 Ordering Phys: Kathleen Roach Technologist: Santi Rasmussen [place]am [place] [facility] [place] Indication: Aortic stenosis BP: 154 / 85 HR: 67 Rhythm: Sinus Technical Quality: Adequate MEASUREMENTS (Male / Female) Normal Values 2D ECHO LV Diastolic Diameter PLAX 5.1 cm 4.2 - 5.9 / 3.9 - 5.3 cm IVS Diastolic Thickness 0.9 cm 0.6 - 1.0 / 0.6 - 0.9 cm IVS Systolic Thickness 1.2 cm LVPW Diastolic Thickness 1.1 cm 0.6 - 1.0 / 0.6 - 0.9 cm LVPW Systolic Thickness 1.4 cm LVOT Diameter 2.0 cm LV Ejection Fraction 2D Teich 28.4 % LV Ejection Fraction MOD 4C 48.1 % LV Ejection Fraction MOD 2C 46.5 % LV Ejection Fraction 2C AL 45.6 % LA Diameter 3.4 cm RA Systolic Volume 4C AL 22.8 ml RA Systolic Volume 4C MOD 22.4 ml LA Sys Volume AL 58.1 cm cubed LA Sys Volume Index AL 40.0 cm cubed/m squared Aorta at Sinotubular Diameter 2.0 cm IVC Diameter 1.7 cm M-MODE LA Ao Ratio MM 2.1 AV Cusp Separation MM 1.8 cm DOPPLER AV Peak Velocity 210.3 cm/s LVOT Peak Velocity 76.0 cm/s AV Area Cont Eq vti 1.3 cm squared AV Area Cont Eq pk 1.1 cm squared MV Peak Velocity 126.0 cm/s MV Area PHT 9.5 cm squared Mitral E to A Ratio 0.8 TV Peak Velocity 354.7 cm/s TR Peak Velocity 513.0 cm/s TR Peak Gradient 105.3 mmHg TR Mean Velocity 423.0 cm/s TR Mean Gradient 75.2 mmHg TR Velocity Time Integral 155.2 cm PV Peak Velocity 113.7 cm/s RV Ejection Time 0.3 s FINDINGS Left Ventricle Diffuse hypokinesia left ventricular ejection fraction of 46%. Mild concentric left ventricular hypertrophy.Grade I/IV diastolic dysfunction (abnormal relaxation filling pattern), normal to mildly elevated filling pressures. Right Ventricle The right ventricle is normal in size and function. Right Atrium The right atrium is normal in size. Left Atrium Moderately increased left atrial size. Mitral Valve Thickened mitral valve. Mild mitral valve regurgitation. Aortic Valve Mild aortic valve calcification. Moderate aortic valve regurgitation. Features of aortic valve sclerosis Tricuspid Valve Trace to mild tricuspid valve regurgitation. Estimated PA pressure, within normal limits Pulmonic Valve Pulmonic valve not well visualized. Pericardium Normal pericardium without effusion. Aorta Normal ascending aorta dimension. IVC Normal inferior vena cava. CONCLUSIONS Diffuse hypokinesia left ventricular ejection fraction of 46%. Mild concentric left ventricular hypertrophy.Grade I/IV diastolic dysfunction (abnormal relaxation filling pattern), normal to mildly elevated filling pressures. Mild aortic valve calcification. Moderate aortic valve regurgitation. Features of aortic valve sclerosis. Moderately increased left atrial size. Thickened mitral valve. Mild mitral valve regurgitation. Trace to mild tricuspid valve regurgitation. There is no pericardial effusion. There are no intracardiac masses. Compared to the study from 12/21/2022, there may not be significant change Dr Pete Cohen MD [facility] (Electronically Signed) Final Date: 07 January 2024 19:17 S
== END 2024-01-05 08:34 | disposition home or self-care (01) ==
LOC: RAD 08:34
PROVIDERS: PCP Physician Assistant; Visit Provider Nurse Practitioner Family
DX: I35.1 Nonrheumatic aortic (valve) insufficiency (principal); I50.30 Unspecified diastolic (congestive) heart failure; I51.7 Cardiomegaly
CPT/HCPCS: 93306; 99214

== ENCOUNTER 2024-03-26 10:12 | Oncology outpatient (recurring) (ONCR) | payer MEDICARE, SELFPAY ==
[2024-03-26 10:15] VITALS: BP 153/62; PULSE 66; RESP 18; TEMP 36.6; O2SAT 97
[2024-03-26] MEDS: denosumab 60 mg SDV SUBCUT (10:15)
== END 2024-04-16 23:59 | disposition home or self-care (01) ==
LOC: ONCMED 10:13
PROVIDERS: PCP Physician Assistant; Visit Provider Internal Medicine Medical Oncology
DX: M81.0 Age-related osteoporosis without current pathological fracture (principal); Z79.899 Other long term (current) drug therapy
CPT/HCPCS: 96401; J0897

== ENCOUNTER → 2024-03-28 08:52 | Outpatient (BNVA) | payer MEDICARE, SELFPAY | PROVIDERS: PCP Physician Assistant; Referring Provider Dermatology; Visit Provider Orthopaedic Surgery | DX: M54.50 Low back pain, unspecified (principal); M54.9 Dorsalgia, unspecified; G89.29 Other chronic pain | CPT/HCPCS: 72110; 99204 ==

== ENCOUNTER 2024-06-11 08:24 | Outpatient (CLI) | payer MEDICARE, SELFPAY ==
[2024-06-11 09:16] LABS: Calcium 10.2 mg/dL (8.5-10.5); Parathyroid Hormone 37.9 pg/mL (15-65)
[2024-06-11 09:29] LABS: 25 Hydroxy Vitamin D 72 ng/mL (30-100)
== END 2024-06-11 08:25 | disposition home or self-care (01) ==
LOC: LAB 08:26
PROVIDERS: PCP Physician Assistant; Visit Provider Internal Medicine
DX: E83.52 Hypercalcemia (principal); M81.0 Age-related osteoporosis without current pathological fracture
CPT/HCPCS: 36415; 82306; 82310; 83970

== ENCOUNTER → 2024-06-18 08:00 | Outpatient (BNVA) | payer MEDICARE, SELFPAY | PROVIDERS: PCP Physician Assistant; Visit Provider Internal Medicine | DX: M81.0 Age-related osteoporosis without current pathological fracture (principal); E83.52 Hypercalcemia | CPT/HCPCS: 99214 ==

== ENCOUNTER → 2024-07-22 13:45 | Outpatient (BNVA) | payer MEDICARE, SELFPAY | PROVIDERS: PCP Physician Assistant; Visit Provider Internal Medicine Cardiovascular Disease | DX: I25.10 Atherosclerotic heart disease of native coronary artery without angina pectoris (principal); I25.5 Ischemic cardiomyopathy; I35.0 Nonrheumatic aortic (valve) stenosis; I11.0 Hypertensive heart disease with heart failure; I50.23 Acute on chronic systolic (congestive) heart failure; I49.9 Cardiac arrhythmia, unspecified; Z98.61 Coronary angioplasty status | CPT/HCPCS: 99214 ==

== ENCOUNTER 2024-07-23 07:47 | Outpatient (CLI) | payer MEDICARE, SELFPAY ==
[2024-07-23 08:54] LABS: Blood Urea Nitrogen 12 mg/dL (8-23); Calcium 9.7 mg/dL (8.5-10.5); Carbon Dioxide 21 mmol/L (22-29); Chloride 95 mmol/L (98-107); Glucose 87 mg/dL (65-115); NT Pro B Type Natriuretic Pept 803 pg/mL (0-125); Osmolality Calculated 269 mOsm/kg (285-295); Sodium 130 mmol/L (136-145)
[2024-07-23 09:03] LABS: Anion Gap 18.2 (5-19); Potassium 4.2 mmol/L (3.5-5.1)
== END 2024-07-23 07:48 | disposition home or self-care (01) ==
LOC: LAB 07:48
PROVIDERS: PCP Physician Assistant; Visit Provider Internal Medicine Cardiovascular Disease
DX: R06.02 Shortness of breath (principal)
CPT/HCPCS: 80048; 83880

== ENCOUNTER 2024-09-10 13:52 | Oncology outpatient (recurring) (ONCR) | payer MEDICARE, SELFPAY ==
[2024-09-10 15:11] LABS: Alanine Aminotransferase 14 U/L (0-33); Albumin Level 4.4 g/dL (3.5-5.2); Alkaline Phosphatase 83 U/L (35-105); Aspartate Amino Transferase 19 U/L (0-32); Blood Urea Nitrogen 16 mg/dL (8-23); Calcium 9.7 mg/dL (8.5-10.5); Carbon Dioxide 21 mmol/L (22-29); Chloride 94 mmol/L (98-107); Globulin 2.8 g/dL (1.3-4.6); Glucose 87 mg/dL (65-115); Osmolality Calculated 265 mOsm/kg (285-295); Sodium 127 mmol/L (136-145); Total Bilirubin 0.4 mg/dL (0.15-1.2); Total Protein 7.2 g/dL (6.6-8.7)
[2024-09-10 15:38] LABS: Anion Gap 16.3 (5-19); Potassium 4.3 mmol/L (3.5-5.1)
== END 2024-09-14 23:59 | disposition home or self-care (01) ==
LOC: ONCMED 13:52
PROVIDERS: Internal Medicine; PCP Physician Assistant; Visit Provider Internal Medicine Medical Oncology
DX: M81.0 Age-related osteoporosis without current pathological fracture (principal)
CPT/HCPCS: 36415; 80053

== ENCOUNTER 2024-10-01 14:48 | Oncology outpatient (recurring) (ONCR) | payer MEDICARE, SELFPAY ==
[2024-10-01] MEDS: denosumab 60 mg SDV SUBCUT (15:43)
== END 2024-10-14 23:59 | disposition home or self-care (01) ==
PROVIDERS: PCP Physician Assistant; Visit Provider Internal Medicine Medical Oncology
DX: M81.0 Age-related osteoporosis without current pathological fracture (principal); Z79.899 Other long term (current) drug therapy
CPT/HCPCS: 96372; J0897

== ENCOUNTER → 2024-12-18 10:14 | Outpatient (BNVA) | payer MEDICARE, SELFPAY | PROVIDERS: PCP Physician Assistant; Referring Provider Physician Assistant; Visit Provider Nurse Practitioner Family | DX: M54.6 Pain in thoracic spine (principal); G89.29 Other chronic pain | CPT/HCPCS: 99214 ==

== ENCOUNTER → 2025-01-20 09:30 | Outpatient (BNVA) | payer MEDICARE, SELFPAY | PROVIDERS: PCP Physician Assistant; Visit Provider Nurse Practitioner Family | DX: M54.6 Pain in thoracic spine (principal); G89.29 Other chronic pain | CPT/HCPCS: 99214 ==

== ENCOUNTER 2025-01-22 10:45 | Outpatient (CLI) | payer MEDICARE, SELFPAY ==
--- NOTE | 2025-01-22 10:49 | MR_ITS ---
WS: [id number] MRI THORACIC SPINE noncontrast HISTORY: CHRONIC LEFT THORACIC BACK PAIN COMPARISON: None available. TECHNIQUE: Multiplanar sequences are performed in sagittal and axial planes. Moderate increase in thoracic kyphosis. There is a small amount of marrow edema in the anterior endplates of T9 and T10. Small amount of edema in the anterior vertebral bodies at T11, T12, L1 and L2. No fractures or retropulsion. Normal signal within the cord. T1-2: Normal. T2-3: Normal. T3-4: Normal. T4-5: Normal. T5-6: Normal. T6-7: Normal. T7-8: Tiny RIGHT paracentral disc protrusion. T8-9: Normal. T9-10: Normal. T10-11: Bilateral facet arthritis. Mild foraminal stenosis. T11-12: Moderate bilateral facet joint arthritis, greater on the RIGHT. Moderate RIGHT and mild LEFT foraminal stenosis. Bilateral renal cysts. Heart is slightly enlarged. MR/MR thoracic spin wo con* [id number] IMPRESSION: 1. No acute fractures or retropulsion. There is a small amount of marrow edema in several vertebral bodies, T9-L2. Most likely reactive edema. 2. No retropulsion or central stenosis. 3. Facet joint arthritis, greatest on the RIGHT at T11-12 with moderate stenos is.
== END 2025-01-22 10:46 | disposition home or self-care (01) ==
LOC: RAD 10:47
PROVIDERS: PCP Physician Assistant; Visit Provider Physician Assistant
DX: M47.894 Other spondylosis, thoracic region (principal); G89.29 Other chronic pain; R60.0 Localized edema; M48.04 Spinal stenosis, thoracic region; M40.294 Other kyphosis, thoracic region; N28.1 Cyst of kidney, acquired; I51.7 Cardiomegaly
CPT/HCPCS: 72146

== ENCOUNTER → 2025-02-20 13:18 | Outpatient (BNVA) | payer MEDICARE, SELFPAY | PROVIDERS: PCP Physician Assistant; Visit Provider Internal Medicine Cardiovascular Disease | DX: I25.10 Atherosclerotic heart disease of native coronary artery without angina pectoris (principal); I10 Essential (primary) hypertension; E78.5 Hyperlipidemia, unspecified; Q63.8 Other specified congenital malformations of kidney | CPT/HCPCS: 99214 ==

== ENCOUNTER 2025-02-25 07:50 | Outpatient (CLI) | payer MEDICARE, SELFPAY ==
[2025-02-25 08:53] LABS: Alanine Aminotransferase 17 U/L (0-33); Albumin Level 5.0 g/dL (3.5-5.2); Alkaline Phosphatase 80 U/L (35-105); Anion Gap 17.3 (5-19); Aspartate Amino Transferase 21 U/L (0-32); Blood Urea Nitrogen 14 mg/dL (8-23); Calcium 10.1 mg/dL (8.5-10.5); Carbon Dioxide 24 mmol/L (22-29); Chloride 92 mmol/L (98-107); Globulin 2.7 g/dL (1.3-4.6); Glucose 101 mg/dL (65-115); Osmolality Calculated 269 mOsm/kg (285-295); Potassium 4.3 mmol/L (3.5-5.1); Sodium 129 mmol/L (136-145); Total Protein 7.7 g/dL (6.6-8.7)
== END 2025-02-25 07:51 | disposition home or self-care (01) ==
LOC: LAB 07:53
PROVIDERS: PCP Physician Assistant; Visit Provider Internal Medicine Cardiovascular Disease
DX: I11.0 Hypertensive heart disease with heart failure (principal); I50.20 Unspecified systolic (congestive) heart failure; I25.10 Atherosclerotic heart disease of native coronary artery without angina pectoris; I25.5 Ischemic cardiomyopathy
CPT/HCPCS: 36415; 80053

== ENCOUNTER 2025-03-31 08:19 | Oncology outpatient (recurring) (ONCR) | payer MEDICARE, SELFPAY ==
[2025-03-31] MEDS: denosumab 60 mg SDV (Infusion Clinic Only) SUBCUT (08:42)
== END 2025-04-16 23:59 | disposition home or self-care (01) ==
PROVIDERS: PCP Physician Assistant; Visit Provider Internal Medicine Medical Oncology
DX: M81.0 Age-related osteoporosis without current pathological fracture (principal); Z79.899 Other long term (current) drug therapy
CPT/HCPCS: 96372; J0897